=== PATIENT | female | born 1930 | race Caucasian/White ===

== ENCOUNTER 2018-08-29 12:23 | Inpatient (IN) ==
[2018-08-29] MEDS ORDERED: Adenosine Inj 6 MG/2 ML Syringe IV.PUSH ONE ×2 (12:33→12:40)
[2018-08-29] MEDS ORDERED: dilTIAZem Inj 125 MG in Sodium Chlor 0.9% Inj 100 ML IV.CONT PRN (12:40)
--- NOTE | 2018-08-29 12:47 | ED ---
HPI General Chief complaint: Arrhythmia / Palpitations Stated complaint: Medical Time Seen by Provider: 08/29/18 12:40 History of Present Illness HPI narrative: Patient is an 88-year-old female presents emergency department for evaluation of a fast heart rate. Patient states he went to her primary care physicians today and was told that she had a fast heart rate and was told to come immediately to the emergency department. Patient states she is on Coumadin and has been on Coumadin since she was admitted to the hospital for a hip fracture. She is also states she is on thyroid medicine. Patient when asked does not states that she does not have a history of atrial fibrillation. She has seen a kitchen manager sometime in the distant past but was discharged from the practice because her doctor said she did not need to go back anymore. No chest pain no shortness of breath no abdominal pain really no complaints of any kind. Related Data Allergies Allergy/AdvReac Type Severity Reaction Status Date / Time aspirin Allergy Unknown Bleeding Unverified 08/29/18 12:33 Review of Systems ROS: all other systems reviewed are negative [facility] Medical History Medical History A-fib (Acute) Social History Social History Substance History: No History of Abuse Smoking Status: Former smoker How Often Do You Have a Drink Containing Alcohol: Never Recent Travel in [facility] [place] within the Last 8 Weeks: No Immunization History Tetanus Immunization: <5 Years Exam Narrative Exam Narrative: GENERAL: Well-developed well-nourished, no obvious distress, quite pleasant per SKIN: Focused skin assessment warm/dry. HEAD: Atraumatic. Normocephalic. EYES: Pupils equal and round. No scleral icterus. No injection or drainage. ENT: No nasal bleeding or discharge. Mucous membranes pink and moist. NECK: Trachea midline. No JVD. CARDIOVASCULAR: Regular rhythm very tachycardic. 2+ bilateral equal pulses in all 4 extremities. No murmur appreciated. No murmurs gallops or rubs. RESPIRATORY: No accessory muscle use. Clear to auscultation. Breath sounds equal bilaterally. GASTROINTESTINAL: Abdomen soft, non-tender, nondistended. Hepatic and splenic margins not palpable. MUSCULOSKELETAL: No obvious deformities. No clubbing. No cyanosis. No edema. NEUROLOGICAL: Awake and alert. No obvious cranial nerve deficits. Motor grossly within normal limits. Normal speech. PSYCHIATRIC: Appropriate mood and affect; insight and judgment normal. Course Initial Documented Vital Signs Temperature 97.9 F 08/29/18 12:35 Pulse Rate 179 H 08/29/18 12:35 Respiratory Rate 24 08/29/18 12:35 Blood Pressure 110/92 H 08/29/18 12:35 Pulse Oximetry 100 08/29/18 12:35 Last Documented Vital Signs Temperature 97.9 F 08/29/18 12:35 Pulse Rate 109 H 08/29/18 12:49 Respiratory Rate 22 08/29/18 12:39 Blood Pressure 99/65 L 08/29/18 12:39 Pulse Oximetry 96 08/29/18 12:50 Medical Decision Making MDM Narrative Medical decision making narrative: Patient room to the emergency department, EKG shows SVT at 180 beats a minute, there are sometimes with the patient appears irregular on the monitor but it very difficult to determine the underlying rhythm. She was given adenosine 6 mg and a rhythm strip performed during the chemical cardioversion shows no P waves and consistent with atrial fibrillation RVR. The patient was given 15 mg of Cardizem at a 0.25 mg/kg bolus dose and this controlled her heart rate between 110-130. She will be started on a drip. Basic cardiac labs are pending and patient will probably be admitted to the hospital for further workup of (presumed) new onset atrial fibrillation RVR. Patient INR is 4, I think that she probably has a history of atrial fibrillation given this information however she does not call it. Thyroid studies unremarkable. Her rate is better controlled after bolus Cardizem in the 110, she is started on a Cardizem drip for further rate control. Discussed with Dr. Jacinto for admission. She remains complaint free. Medical Screen Exam Complete: Yes Emergency Medical Condition: Yes Lab Data Result diagrams: 08/29/18 12:47 08/29/18 12:47 Lab Results 08/29/18 08/29/18 08/29/18 Range/Units 12:47 12:47 12:47 WBC 11.5 H (4.0-11.0) th/mm3 RBC 4.14 (4.00-5.30) mil/mm3 Hgb 9.2 L (11.6-15.3) gm/dL Hct 30.0 L (35.0-46.0) % MCV 72.3 L (80.0-100.0) fL MCH 22.3 L (27.0-34.0) pg MCHC 30.8 L (32.0-36.0) % RDW 17.4 H (11.6-17.2) % Plt Count 253 (150-450) th/mm3 MPV 10.1 (7.0-11.0) fL Neut % (Auto) 79.8 H (16.0-70.0) % Lymph % (Auto) 9.3 (9.0-44.0) % Barron % (Auto) 9.3 H (0.0-8.0) % Eos % (Auto) 0.8 (0.0-4.0) % Baso % (Auto) 0.8 (0.0-2.0) % Neut # (Auto) 9.2 H (1.8-7.7) th/mm3 Lymph # (Auto) 1.1 (1.0-4.8) th/mm3 Barron # (Auto) 1.1 H (0.0-0.9) th/mm3 Eos # (Auto) 0.1 (0.0-0.4) th/mm3 Baso # (Auto) 0.1 (0.0-0.2) th/mm3 WBC Differential . Differential Comment Auto diff final PT 41.4 H (9.8-11.6) sec INR 4.1 Ratio APTT 46.7 H (23.4-31.7) sec Sodium 143 (136-145) meq/L Potassium 3.7 (3.5-5.1) meq/L Chloride 109 H (98-107) meq/L Carbon Dioxide 24.2 (21.0-32.0) meq/L Anion Gap 10 (5-15) meq/L BUN 16 (7-18) mg/dL Creatinine 1.17 H (0.50-1.00) mg/dL Estimated GFR 44 L (>89) mL/min Random Glucose 113 H (74-106) mg/dL Calcium 9.1 (8.5-10.1) mg/dL Total Bilirubin 0.6 (0.2-1.0) mg/dL AST 16 (15-37) U/L ALT 17 (10-53) U/L Alkaline Phosphatase 63 (45-117) U/L Troponin I Less than 0.02 L (0.02-0.05) ng/mL Total Protein 7.1 (6.4-8.2) g/dL Albumin 3.6 (3.4-5.0) g/dL TSH (0.358-3.740) uIU/mL Free T4 (0.76-1.46) ng/dL Free T3 (2.18-3.98) pg/mL 08/29/18 Range/Units 12:47 WBC (4.0-11.0) th/mm3 RBC (4.00-5.30) mil/mm3 Hgb (11.6-15.3) gm/dL Hct (35.0-46.0) % MCV (80.0-100.0) fL MCH (27.0-34.0) pg MCHC (32.0-36.0) % RDW (11.6-17.2) % Plt Count (150-450) th/mm3 MPV (7.0-11.0) fL Neut % (Auto) (16.0-70.0) % Lymph % (Auto) (9.0-44.0) % Barron % (Auto) (0.0-8.0) % Eos % (Auto) (0.0-4.0) % Baso % (Auto) (0.0-2.0) % Neut # (Auto) (1.8-7.7) th/mm3 Lymph # (Auto) (1.0-4.8) th/mm3 Barron # (Auto) (0.0-0.9) th/mm3 Eos # (Auto) (0.0-0.4) th/mm3 Baso # (Auto) (0.0-0.2) th/mm3 WBC Differential Differential Comment PT (9.8-11.6) sec INR Ratio APTT (23.4-31.7) sec Sodium (136-145) meq/L Potassium (3.5-5.1) meq/L Chloride (98-107) meq/L Carbon Dioxide (21.0-32.0) meq/L Anion Gap (5-15) meq/L BUN (7-18) mg/dL Creatinine (0.50-1.00) mg/dL Estimated GFR (>89) mL/min Random Glucose (74-106) mg/dL Calcium (8.5-10.1) mg/dL Total Bilirubin (0.2-1.0) mg/dL AST (15-37) U/L ALT (10-53) U/L Alkaline Phosphatase (45-117) U/L Troponin I (0.02-0.05) ng/mL Total Protein (6.4-8.2) g/dL Albumin (3.4-5.0) g/dL TSH 2.640 (0.358-3.740) uIU/mL Free T4 1.33 (0.76-1.46) ng/dL Free T3 1.69 L (2.18-3.98) pg/mL Imaging Data Radiologist's impression: Chest X-Ray 08/29/18 12:40 CONCLUSION: Cardiomegaly without evidence of acute cardiopulmonary process. Discharge Plan Discharge Order Discharge Orders: ED Use Only Admit Order (Routine); Ordered 08/29/18 Ordered By: Emmanuel Miller Physicians Team ED Provider: Emmanuel Miller Primary Care Provider: Clair Oliver Discharge Interventions Interventions: Vital Signs Last Done: 08/29/18 12:39 Status ED Status: Admitted Patient
[2018-08-29 13:07] LABS: Baso # (Auto) 0.1 th/mm3 (0.0-0.2); Baso % (Auto) 0.8 % (0.0-2.0); Eos # (Auto) 0.1 th/mm3 (0.0-0.4); Eos % (Auto) 0.8 % (0.0-4.0); Hemoglobin 9.2 gm/dL (11.6-15.3); Lymph # (Auto) 1.1 th/mm3 (1.0-4.8); Lymph % (Auto) 9.3 % (9.0-44.0); Mean Corpuscular Hemoglobin 22.3 pg (27.0-34.0); Mean Corpuscular Volume 72.3 fL (80.0-100.0); Mean Platelet Volume 10.1 fL (7.0-11.0); Mono # (Auto) 1.1 th/mm3 (0.0-0.9); Mono % (Auto) 9.3 % (0.0-8.0); Neut # (Auto) 9.2 th/mm3 (1.8-7.7); Neut % (Auto) 79.8 % (16.0-70.0); Platelet Count 253 th/mm3 (150-450); Red Blood Count 4.14 mil/mm3 (4.00-5.30); Red Cell Distribution Width 17.4 % (11.6-17.2); White Blood Count 11.5 th/mm3 (4.0-11.0)
[2018-08-29 13:11] LABS: Mean Corpuscular HGB Conc 30.8 % (32.0-36.0)
[2018-08-29 13:19] LABS: Activated Partial Thrombo Time 46.7 sec (23.4-31.7); INR 4.1 Ratio; Prothrombin Time 41.4 sec (9.8-11.6)
--- NOTE | 2018-08-29 13:26 | XR ---
EXAM DATE: 08/29/2018 1:05 PM EST AGE/SEX: 88 years / Female INDICATIONS: Chest pain. CLINICAL DATA: This is the patient's initial encounter. Patient reports that signs and symptoms have been present for 1 day and indicates a pain score of 6/10. MEDICAL/SURGICAL HISTORY: . A-fib None. COMPARISON: No prior exams available for comparison. FINDINGS: Heart is mildly enlarged. Lungs are well-expanded and free of acute airspace disease or significant congestion. Osseous structures are intact. CONCLUSION: Cardiomegaly without evidence of acute cardiopulmonary process. Electronically signed by: Jm Elias MD Board Certified Radiologist 08/29/2018 1:24 PM EST
[2018-08-29 13:27] LABS: Albumin 3.6 g/dL (3.4-5.0); Anion Gap 10 meq/L (5-15); Aspartate Aminotransferase 16 U/L (15-37); Blood Urea Nitrogen 16 mg/dL (7-18); Calcium 9.1 mg/dL (8.5-10.1); Carbon Dioxide 24.2 meq/L (21.0-32.0); Chloride 109 meq/L (98-107); Glomerular Filtration Rate 44 mL/min (>89); Glucose,Random 113 mg/dL (74-106); Potassium 3.7 meq/L (3.5-5.1); Sodium 143 meq/L (136-145)
[2018-08-29 13:29] LABS: Alanine Aminotransferase 17 U/L (10-53)
[2018-08-29 13:32] LABS: Alkaline Phosphatase 63 U/L (45-117); Total Protein 7.1 g/dL (6.4-8.2)
[2018-08-29 13:36] LABS: Free T4 (Free Thyroxine) 1.33 ng/dL (0.76-1.46); Thyroid Stimulating Hormone 2.64 uIU/mL (0.358-3.740); Triiodothyronine (T3) Free 1.69 pg/mL (2.18-3.98)
[2018-08-29] MEDS ORDERED: Bisacodyl 10 MG Supp RECTAL PRN (14:00)
--- NOTE | 2018-08-29 16:24 | P.HPIM ---
History of Present Illness Primary Care Physician: Clair Oliver MD Chief Complaint: My doctor told me to come to the emergency room. History of Present Illness: 88-year-old white female with a history of hyperlipidemia, hypothyroidism was sent to the emergency room after she was seen at her primary care physician's office today and found to have a weak and fast heart rate. She states that she has been asymptomatic with no complaints of dizziness, chest pain, palpitations, diaphoresis, nor any shortness of breath. She states that she does not believe she has a history of any cardiac issues even though she is on digoxin and verapamil. She had one visit with a snow removing supervisor in the distant past but was discharged from his practice. She reports chronic lower extremity swelling which is not worse however has noted some increased dry skin. She denies symptoms of orthopnea, nor any PND. She states that she lives with her daughter and usually ambulates independently. She states that she had a previous right hip fracture that was repaired and was under the impression she is on Coumadin due to the hip fracture. Diagnosis (1) Atrial fibrillation with RVR: Inpatient Certification Inpatient Certification: I certify that the inpatient services were ordered in accordance with Medicare regulations governing the order. This includes certification that hospital inpatient services are reasonable and necessary and in the case of services not specified as inpatient-only under 42 CFR 419.22(n), that they are appropriately provided as inpatient services in accordance to with the 2-midnight benchmark under 43 CFR 412.3(e) Estimated Total Length of Stay (Days): 3 Plans for Post Hospital Care: Home Review of Systems Constitutional: Reports as per HPI, Denies chills, Denies fatigue, Denies fever( s), Denies frequent falls and Denies headache(s) Eyes: Denies blurry vision, Denies change in vision and Denies eye pain Ears, Nose, Mouth, and Throat: Denies abnormal hearing, Denies headache(s), Denies mouth pain, Denies nasal congestion, Denies neck pain and Denies sore throat Cardiovascular: Denies chest pain, Denies pedal edema, Reports leg edema, Denies palpitations, Denies dyspnea, Denies orthopnea and Denies paroxysmal nocturnal dyspnea Respiratory: Denies cough, Denies dyspnea and Denies wheezing Gastrointestinal: Denies abdominal pain, Denies constipation, Denies loose stools, Denies nausea and Denies vomiting Musculoskeletal: Denies back pain, Denies myalgias, Denies arthralgias, Denies neck pain and Denies numbness Skin/Breast: Denies new lesions and Denies rash Neurologic: Denies abnormal hearing, Denies headache(s), Denies focal weakness, Denies memory loss and Denies numbness Psychiatric: Denies anxiety, Denies depression and Denies memory loss Endocrine: Denies cold intolerance, Denies heat intolerance and Denies palpitations Hematologic/Lymphatic: Denies easy bleeding and Denies easy bruising [facility] Medical History Medical History Hyperlipemia (Chronic) Hypothyroid (Chronic) Osteoporosis (Chronic) Surgical History Surgical History History of repair of right hip joint (Chronic) Family History Family History Mother Diabetes mellitus Social History Social History Substance History: No History of Abuse Smoking Status: Former smoker How Often Do You Have a Drink Containing Alcohol: Never Recent Travel in [facility] within the Last 8 Weeks: No Immunization History Tetanus Immunization: <5 Years Medications and Allergies Allergies Allergy/AdvReac Type Severity Reaction Status Date / Time aspirin Allergy Unknown Bleeding Unverified 08/29/18 12:33 Home Medications Medication Instructions Recorded Confirmed Type alendronate [Fosamax] 70 mg PO QWEEK 08/29/18 08/29/18 History bumetanide 1 mg PO DAILY 08/29/18 08/29/18 History digoxin [Lanoxin] 0.125 mg PO DAILY 08/29/18 08/29/18 History levothyroxine 100 mcg PO DAILY 08/29/18 08/29/18 History potassium chloride 10 meq PO DAILY 08/29/18 08/29/18 History pravastatin 40 mg PO DAILY 08/29/18 08/29/18 History verapamil 120 mg PO HS 08/29/18 08/29/18 History warfarin [Jantoven] 2.5 mg PO 3XW 08/29/18 08/29/18 History warfarin [Jantoven] 5 mg PO 4XW 08/29/18 08/29/18 History Active Medications: Active Medications Acetaminophen (Tylenol) 650 mg PO Q4H PRN PRN Reason: Temp > 100.4 Al Hydroxide/Mg Hydroxide (Milk Of Magnesia Liq) 30 ml PO Q12H PRN PRN Reason: Mild Constipation Bisacodyl (Dulcolax Supp) 10 mg RECTAL DAILY PRN PRN Reason: SEVERE CONSITIPATION Diltiazem HCl 125 mg/ Sodium (Chloride) 125 mls @ 5 mls/hr IV.CONT TITRATE PRN ; Protocol PRN Reason: Per Protocol Last Titration: 08/29/18 15:09 Dose: 10 mg/hr, 10 mls/hr Lactulose (Lactulose Liq) 30 ml PO DAILY PRN PRN Reason: SEVERE CONSITIPATION Ondansetron HCl (Zofran Inj) 4 mg IV.PUSH Q6H PRN PRN Reason: NAUSEA OR VOMITING Sennosides (Senokot) 17.2 mg PO Q12H PRN PRN Reason: Moderate Constipation Sodium Chloride (Ns Flush) 2 ml IV.FLUSH UNSCH PRN PRN Reason: FLUSH AFTER USING IV ACCESS Sodium Chloride (Ns Flush) 2 ml IV.FLUSH BID VOLODYMYR Sodium Chloride (Ns Flush) 2 ml IV.FLUSH PRN PRN PRN Reason: FLUSH AFTER USING IV ACCESS Physical Exam Vital signs: Last Vital Signs Temp 97.9 F 08/29/18 12:35 Pulse 90 08/29/18 16:08 Resp 16 08/29/18 15:10 BP 112/69 08/29/18 16:08 Pulse Ox 99 08/29/18 15:10 Intake & Output 08/27/18 08/28/18 08/29/18 08/30/18 06:59 06:59 06:59 06:59 Weight 2.325 kg Narrative: GENERAL: Well-nourished well-developed elderly female lying in bed in no acute distress SKIN: Dry flaking skin bilateral lower extremities HEAD: Atraumatic. Normocephalic. EYES: Pupils equal and round. No scleral icterus. No injection or drainage. ENT: No nasal bleeding or discharge. Mucous membranes pink and moist. NECK: Trachea midline. No JVD. CARDIOVASCULAR: Irregular rhythm tachycardic rate RESPIRATORY: No accessory muscle use. Few expiratory wheeze GASTROINTESTINAL: Abdomen soft, non-tender, small ventral hernia reducible with normal active bowel sounds MUSCULOSKELETAL: Extremities without clubbing, cyanosis, 1-2+ edema NEUROLOGICAL: Awake and alert to person place time and situation. No obvious cranial nerve deficits. Motor grossly within normal limits. Five out of 5 muscle strength in the arms and legs. Normal speech. PSYCHIATRIC: Appropriate mood and affect; insight and judgment normal. Results Labs CBC & Chem 7: 08/29/18 12:47 08/29/18 12:47 Imaging Impressions Chest X-Ray 08/29/18 12:40 CONCLUSION: Cardiomegaly without evidence of acute cardiopulmonary process. ECG Attestation: I personally reviewed and interpreted this ECG as follows: Prior ECG tracings: not available for review Interpretation: Atrial fibrillation with rapid ventricular rate 194 Caprini VTE Risk Assessment Caprini Risk Assessment Model: Point Value = 1 Point Value = 2 Point Value = 3 Point Value = 5 Age 41-60 Minor surgery BMI > 25 kg/m2 Swollen legs Varicose veins or History of unexplained or recurrent spontaneous Oral contraceptives or hormone replacement Sepsis (< 1 month) Serious lung disease, including pneumonia (< 1 month) Abnormal pulmonary function Acute myocardial infarction Congestive heart failure (< 1 month) History of inflammatory bowel disease Medical patient at bed rest Age 61-74 Arthroscopic surgery Major open surgery (> 45 min) Laparoscopic surgery (> 45 min) Malignancy Confined to bed (> 72 hours) Immobilizing plaster cast Central venous access Age >= 75 History of VTE Family history of VTE Factor V Leiden Prothrombin [id number] Lupus anticoagulant Anticardiolipin antibodies Elevated serum homocysteine Heparin-induced thrombocytopenia Other congenital or acquired thrombophilia Stroke (< 1 month) Elective arthroplasty Hip, pelvis, or leg fracture Acute spinal cord injury (< 1 month) Prophylaxis Regimen: Total Risk Factor Score Risk Level Prophylaxis Regimen 0-1 Low Early ambulation 2 Moderate Order ONE of the following: *Sequential Compression Device (SCD) *Heparin 5000 units SQ BID 3-4 Higher Order ONE of the following medications: *Heparin 5000 units SQ TID *Enoxaparin/Lovenox 40 mg SQ daily (WT < 150 kg, CrCl > 30 mL/min) *Enoxaparin/Lovenox 30 mg SQ daily (WT < 150 kg, CrCl > 10-29 mL/min) *Enoxaparin/Lovenox 30 mg SQ BID (WT < 150 kg, CrCl > 30 mL/min) AND/OR *Sequential Compression Device (SCD) 5 or more Highest Order ONE of the following medications: *Heparin 5000 units SQ TID (Preferred with Epidurals) *Enoxaparin/Lovenox 40 mg SQ daily (WT < 150 kg, CrCl > 30 mL/min) *Enoxaparin/Lovenox 30 mg SQ daily (WT < 150 kg, CrCl > 10-29 mL/min) *Enoxaparin/Lovenox 30 mg SQ BID (WT < 150 kg, CrCl > 30 mL/min) AND *Sequential Compression Device (SCD) Assessment and Plan (1) Atrial fibrillation with RVR: Code(s): I48.91 - Unspecified atrial fibrillation Status: Acute Plan 88-year-old white female was sent from her primary care physician's office due to findings of week and fast pulse Atrial fibrillation with rapid ventricular ratestatus post adenosine and Cardizem IV push with persistent continued uncontrolled rate in which Cardizem drip had to be initiated. Patient denies a cardiac history or arrhythmias however patient has been taking digoxin, verapamil and warfarin. Due to INR in the supratherapeutic range will hold warfarin. Check 2D echo and consult cardiology for further evaluation and recommendations. Check TSH History of hypothyroidismresume home levothyroxine. Due to A. fib with RVR will check TSH level History hyperlipidemiaresume statin. Bilateral lower extremity chronic edemaelevate consideration for RACHELLE hose and continue home Bumex. Lac-hydrin lotion for bilateral dry skin Possible acute kidney injury with no comparison for any recent GFR, last GFR available is in 2008 at 68. -We will monitor closely renal function on diuretic Microcytic anemialikely may be chronic, check iron panel. DVT prophylaxishold warfarin due to elevated INR.
[2018-08-29] MEDS: Acetaminophen 325 MG Tablet PO PRN (23:09)
[2018-08-30] MEDS: Lactic Acid (Ammonium Lactate) 12% Lotion 225 GM Bottle TOPICAL SCH ×3 (02:05→20:15)
[2018-08-30] MEDS: Levothyroxine 100 MCG Tablet PO SCH (06:31)
[2018-08-30] MEDS: Acetaminophen 325 MG Tablet PO PRN (06:31)
[2018-08-30 07:40] LABS: Baso # (Auto) 0.1 th/mm3 (0.0-0.2); Baso % (Auto) 0.9 % (0.0-2.0); Eos # (Auto) 0.2 th/mm3 (0.0-0.4); Eos % (Auto) 2.1 % (0.0-4.0); Hematocrit 25.2 % (35.0-46.0); Lymph # (Auto) 1.2 th/mm3 (1.0-4.8); Lymph % (Auto) 14.7 % (9.0-44.0); Mean Corpuscular HGB Conc 31.8 % (32.0-36.0); Mean Corpuscular Volume 72.2 fL (80.0-100.0); Mean Platelet Volume 9.5 fL (7.0-11.0); Mono # (Auto) 1.1 th/mm3 (0.0-0.9); Mono % (Auto) 12.9 % (0.0-8.0); Neut # (Auto) 5.8 th/mm3 (1.8-7.7); Neut % (Auto) 69.4 % (16.0-70.0); Platelet Count 191 th/mm3 (150-450); Red Blood Count 3.49 mil/mm3 (4.00-5.30); Red Cell Distribution Width 17.1 % (11.6-17.2); White Blood Count 8.3 th/mm3 (4.0-11.0)
[2018-08-30 07:42] LABS: INR 4.5 Ratio; Prothrombin Time 45.3 sec (9.8-11.6)
[2018-08-30 08:02] LABS: Calcium 8.5 mg/dL (8.5-10.1); Carbon Dioxide 23.3 meq/L (21.0-32.0)
[2018-08-30 08:03] LABS: % Iron Saturation 3.1 % (20-50)
[2018-08-30 08:12] LABS: Thyroid Stimulating Hormone 1.84 uIU/mL (0.358-3.740)
--- NOTE | 2018-08-30 10:49 | P.PNIM ---
Subjective Interval history: Follow-up for atrial fibrillation abdominal discomfort Telemetry showed regular rhythm. Patient has abdominal discomfort, no pain but constipated, has not moved her bowels since 4 days ago, no melena or hematochezia. No previous GI problems. No nausea or vomiting, tolerating diet. No bleeding. No palpitations or chest pain. Not short of breath. Blood pressure in the low 90s on Cardizem drip at 5 mg/h. Physical Exam Vital signs: Last Vital Signs Temp 98.1 F 08/30/18 00:00 Pulse 96 H 08/30/18 06:00 Resp 16 08/30/18 04:00 BP 108/75 08/30/18 04:00 Pulse Ox 92 L 08/30/18 04:00 Intake & Output 08/28/18 08/29/18 08/30/18 08/31/18 06:59 06:59 06:59 06:59 Intake Total 640 / 640 Output Total 325 / 325 Balance 315 / 315 Weight 57.3 kg Narrative: GENERAL: Well-nourished well-developed elderly female lying in bed in no acute distress CARDIOVASCULAR: Regular rhythm, heart rate in the 80s, no murmur. RESPIRATORY: No accessory muscle use. Few expiratory wheeze GASTROINTESTINAL: Abdomen soft, mildly tender, mildly distended, small ventral hernia reducible with normal active bowel sounds MUSCULOSKELETAL: Extremities without clubbing, cyanosis, 1-2+ edema NEUROLOGICAL: Awake and alert to person place time and situation. No obvious cranial nerve deficits. Motor grossly within normal limits. Five out of 5 muscle strength in the arms and legs. Normal speech. Results Labs CBC & Chem 7: 08/30/18 07:12 08/30/18 07:13 Imaging Imaging: Impressions Chest X-Ray 08/29/18 12:40 CONCLUSION: Cardiomegaly without evidence of acute cardiopulmonary process. Assessment and Plan (1) Atrial fibrillation with RVR: Code(s): I48.91 - Unspecified atrial fibrillation Status: Acute Plan 88-year-old white female was sent from her primary care physician's office due to findings of week and fast pulse, upon admission, the patient was found to be in atrial fibrillation with rapid ventricular rate. Atrial fibrillation with rapid ventricular ratestatus post adenosine and Cardizem IV push, currently on Cardizem drip at 5 mg/h. Patient denies a cardiac history or arrhythmias however patient has been taking digoxin, verapamil and warfarin. She cannot remember the name of her direct marketing analyst. Due to INR in the supratherapeutic range will hold warfarin, INR at 4.5. TSH is within normal limits, echocardiogram and cardiology consult pending. Possible switch to novel anticoagulant. Will switch Cardizem to oral at 30 mg every 6 hours. Check digoxin level. Will check EKG. Supratherapeutic INR, coagulation abnormality-INR elevated at 4.5, hold warfarin , possible switch to novel anticoagulant if okay with cardiology, check INR tomorrow. Severe constipation-has not had a bowel movement for 4 days, check abdominal x- ray, will give lactulose now and lactulose as needed. Patient refuses suppository. History of hypothyroidismresume home levothyroxine. TSH within normal limits. History hyperlipidemiaresume statin. Bilateral lower extremity chronic edemaelevate consideration for RACHELLE blue, on Bumex but on hold. Lac-hydrin lotion for bilateral dry skin Possible acute kidney injury with no comparison for any recent GFR, last GFR available is in 2008 at 68. We will monitor closely renal function on diuretic, creatinine stable, recheck BMP tomorrow, patient does not have a community development planner. Microcytic anemialikely may be chronic, check iron panel, worsening, dropped from 9.2-8.0. DVT prophylaxishold warfarin due to elevated INR.
[2018-08-30] MEDS: dilTIAZem 30 MG Tablet PO SCH ×3 (12:45→20:09)
[2018-08-30] MEDS ORDERED: Digoxin 125 MCG Tablet PO ONE (13:00)
--- NOTE | 2018-08-30 13:24 | ECHRPT ---
Indication: ATRIAL FIB CONCLUSIONS The left ventricular systolic function is normal with an estimated ejection fraction in the range of 60-65%. Normal left ventricular size. Wall thickness is normal. No regional wall motion abnormalities are present. The left atrial size is mildly dilated. Moderate thickening of the mitral valve leaflets. Trace mitral valve regurgitation. Aortic valve sclerosis is present. Trace aortic valve regurgitation. There is mild to moderate tricuspid valve regurgitation. The estimated pulmonary arterial pressure is 39 mmHg. BP: / HR: Rhythm: Atrial fibrillation Technical Quality:Fair FINDINGS LEFT VENTRICLE The left ventricular systolic function is normal with an estimated ejection fraction in the range of 60-65%. Normal left ventricular size. Wall thickness is normal. No regional wall motion abnormalities are present. RIGHT VENTRICLE Normal right ventricular size and systolic function. LEFT ATRIUM The left atrial size is mildly dilated. RIGHT ATRIUM The right atrial size is normal. ATRIAL SEPTUM Normal atrial septal thickness without atrial level shunting by limited color doppler interrogation. AORTA The aortic root and proximal ascending aorta are normal in size on limited imaging. MITRAL VALVE Moderate thickening of the mitral valve leaflets. Trace mitral valve regurgitation. AORTIC VALVE Trileaflet aortic valve. Aortic valve sclerosis is present. Trace aortic valve regurgitation. TRICUSPID VALVE Structurally normal tricuspid valve. There is mild to moderate tricuspid valve regurgitation. The estimated pulmonary arterial pressure is __ mmHg. PULMONARY VALVE The pulmonary valve is not well visualized. VESSELS The inferior vena cava is normal in size. PERICARDIUM No pericardial effusion. Sandeep Smith MD, FACC (Electronically Signed) Final Date:30 August 2018 13:23
--- NOTE | 2018-08-30 16:18 | ECG ---
Date Performed: 08/29/2018 Time Performed: 12:33:38 PTAGE: 88 years EKG: ATRIAL FIBRILLATION WITH RAPID VENTRICULAR RESPONSE POSSIBLE RIGHT VENTRICULAR CONDUCTION D ELAY NONSPECIFIC ST & T-WAVE ABNORMALITY ABNORMAL ECG PREVIOUS TRACING : 06/13/2008 14.04 Compared to previous tracing, atrial fibrillation has repla qiana Sinus rhythm , heart rate has increased. DOCTOR: Markell Guillen Interpretating Date/Time 08/30/2018 16:17:04
--- NOTE | 2018-08-30 18:01 | MB ---
cc: Markell Guillen MD DATE: 08/30/2018 REASON FOR CONSULTATION: Atrial fibrillation. HISTORY OF PRESENT ILLNESS: The patient is an 88-year-old white female with a history of hypertension, irritable bowel syndrome, hyperlipidemia, paroxysmal atrial fibrillation dating back to 2006, who was sent to the hospital by her primary care doctor as she was felt to be in atrial fibrillation with a rapid ventricular response. The patient denies any palpitations, dizziness, syncope, or near-syncope, chest pain, shortness of breath, paroxysmal nocturnal dyspnea, pedal edema. She reports being on warfarin for at least the last 10 years. PAST MEDICAL HISTORY: 1. Hypertension. 2. Irritable bowel syndrome. 3. Hyperlipidemia. 4. Paroxysmal atrial fibrillation, diagnosed 08/15/2007. PAST SURGICAL HISTORY: 1. Cholecystectomy. 2. Appendectomy. 3. Bladder tumor resection. 4. Right hip nailing. CARDIAC MEDICATIONS AT HOME: 1. Warfarin 2.5 mg 3 days out of the week, 5 mg the four other days. 2. Verapamil 120 mg at bedtime. 3. Bumex 1 mg daily. 4. Potassium chloride 10 mEq daily. 5. Pravastatin 40 mg daily. 6. Digoxin 0.125 mg daily. ALLERGIES: ASPIRIN. FAMILY HISTORY: Noncontributory. SOCIAL HISTORY: The patient denies any history of alcohol or tobacco abuse. REVIEW OF SYSTEMS: As in the history of present illness, otherwise negative or noncontributory. She also denies headache, visual changes, unilateral weakness or numbness, abdominal pain, melena, dyspepsia, bright red blood per rectum. PHYSICAL EXAMINATION: VITAL SIGNS: Her blood pressure is 108/70 with a pulse of 93, respirations 18. GENERAL: She is a well-developed, well-nourished white female, in no acute distress. NECK: Jugular venous pressure is normal. Carotid pulses are 2+ bilaterally and without bruits. CHEST: Reveals unlabored respiratory effort with clear lungs etienne. CARDIAC: She has an irregularly irregular rhythm without S3 or murmur. ABDOMEN: She has a soft, nontender abdomen. Bowel sounds are present. There is no definite hepatosplenomegaly. EXTREMITIES: Reveals no clubbing, cyanosis or edema. LABORATORY DATA: EKG shows atrial fibrillation, cannot rule out atrial flutter, with a rapid ventricular response, right ventricular conduction delay, nonspecific intraventricular conduction delay, anterior ST abnormality, consider ischemia. LABORATORY DATA: Includes INR 4.5, potassium 4.0, BUN 14, creatinine 1.01. Troponin less than 0.02. WBC 8.3, hemoglobin 8.0, platelets 191. Chest x-ray shows no acute disease. ASSESSMENT AND PLAN: Atrial fibrillation with a rapid ventricular response in this 88-year-old white female with a history of paroxysmal atrial fibrillation dating back to 2006, history of hypertension, hyperlipidemia, irritable bowel syndrome. At this time, she remains in atrial fibrillation now with controlled heart rates on oral Cardizem. There is no evidence for acute coronary syndrome or congestive heart failure. Her echocardiogram today is unremarkable, showing an ejection fraction of 60-65%. The chronicity of her episode of atrial fibrillation is not entirely clear. She is completely asymptomatic. RECOMMENDATIONS: 1. Agree with holding warfarin given her supra-therapeutic prothrombin time. 2. If she is stable tomorrow, she can be discharged home from a cardiac standpoint on her same home cardiac medications plus oral Cardizem, to replace her verapamil. Markell Guillen MD [facility]/ll , 04:07 PM , 04:16 PM MTDDaniel
--- NOTE | 2018-08-30 19:55 | XR ---
EXAM DATE: 08/30/2018 7:52 PM EST AGE/SEX: 88 years / Female INDICATIONS: Distention. CLINICAL DATA: This is the patient's initial encounter. Patient reports that signs and symptoms have been present for 2 days and indicates a pain score of 0/10. MEDICAL/SURGICAL HISTORY: . A-Fib. None. COMPARISON: No prior exams available for comparison. FINDINGS: Air is noted throughout the colon which does not appear significantly dilated. No significantly dila jim loops of small bowel. No significant pneumatosis or free air. No abnormal calcifications. S-shape d scoliosis of the lumbar spine with associated degenerative spondylosis. Right femoral fixation hard sanabria in place. CONCLUSION: 1. Nonobstructive bowel gas pattern. Electronically signed by: Tod Chino MD Board Certified Radiologist 08/30/2018 7:54 PM JAZMÍN T
[2018-08-31] MEDS: Levothyroxine 100 MCG Tablet PO SCH (05:20)
[2018-08-31 08:12] LABS: Baso # (Auto) 0.1 th/mm3 (0.0-0.2); Baso % (Auto) 0.8 % (0.0-2.0); Eos # (Auto) 0.2 th/mm3 (0.0-0.4); Eos % (Auto) 1.4 % (0.0-4.0); Hematocrit 27.9 % (35.0-46.0); Hemoglobin 8.9 gm/dL (11.6-15.3); Lymph # (Auto) 1.2 th/mm3 (1.0-4.8); Lymph % (Auto) 10.2 % (9.0-44.0); Mean Corpuscular Hemoglobin 22.6 pg (27.0-34.0); Mean Corpuscular Volume 70.4 fL (80.0-100.0); Mean Platelet Volume 9.8 fL (7.0-11.0); Mono # (Auto) 1.2 th/mm3 (0.0-0.9); Mono % (Auto) 10.2 % (0.0-8.0); Neut # (Auto) 8.9 th/mm3 (1.8-7.7); Neut % (Auto) 77.4 % (16.0-70.0); Platelet Count 220 th/mm3 (150-450); Red Blood Count 3.96 mil/mm3 (4.00-5.30); Red Cell Distribution Width 17.1 % (11.6-17.2); White Blood Count 11.5 th/mm3 (4.0-11.0)
[2018-08-31 08:25] LABS: INR 3.1 Ratio; Prothrombin Time 31.6 sec (9.8-11.6)
[2018-08-31] MEDS: dilTIAZem 30 MG Tablet PO SCH (08:36)
[2018-08-31] MEDS: Lactic Acid (Ammonium Lactate) 12% Lotion 225 GM Bottle TOPICAL SCH ×2 (08:37→20:16)
[2018-08-31 08:44] LABS: Calcium 8.6 mg/dL (8.5-10.1); Carbon Dioxide 25.9 meq/L (21.0-32.0); Potassium 3.4 meq/L (3.5-5.1)
[2018-08-31 08:59] LABS: Digoxin 0.6 ng/mL (0.8-2.0)
--- NOTE | 2018-08-31 10:38 | P.DS ---
DS: Providers Date of admission: 08/29/18 14:04 Primary care physician: Clair Oliver MD Consults: 08/29/18 14:35 HUB Only Consult Order Routine Consulting Provider: Michael Rodriguez 08/30/18 11:15 Consult to Cardiology Routine Consulting Provider: Markell Guillen Does the patient have a Plier Worker who follows them?: Yes Preferred Plant Supervisor:: Blunger Loader Physician Reason for Consultation: afib, rvr. Patient cannot remember her machinist 2nd shift name. Notified:: Office Spoke with:: TIMA Date Notified:: 08/30/18 Time Notified:: 11:25 Ordering Provider: DIGNA Brief History from admission: 88-year-old white female with a history of hyperlipidemia, hypothyroidism was sent to the emergency room after she was seen at her primary care physician's office today and found to have a weak and fast heart rate. She states that she has been asymptomatic with no complaints of dizziness, chest pain, palpitations, diaphoresis, nor any shortness of breath. She states that she does not believe she has a history of any cardiac issues even though she is on digoxin and verapamil. She had one visit with a machinist 2nd shift in the distant past but was discharged from his practice. She reports chronic lower extremity swelling which is not worse however has noted some increased dry skin. She denies symptoms of orthopnea, nor any PND. She states that she lives with her daughter and usually ambulates independently. She states that she had a previous right hip fracture that was repaired and was under the impression she is on Coumadin due to the hip fracture. DS: Diagnosis Discharge Diagnosis (1) Atrial fibrillation with RVR: Status: Acute DS: Summary 88-year-old white female was sent from her primary care physician's office due to findings of week and fast pulse, upon admission, the patient was found to be in atrial fibrillation with rapid ventricular rate. Patient received adenosine and Cardizem push and was placed on Cardizem drip upon ED evaluation. Her verapamil was discontinued. INR was therapeutic hence Coumadin was held. TSH is within normal limits, cardio was done, ejection fraction is 60-65% with normal left ventricular size. Cardiology was consulted and agreed with starting patient on Cardizem and stop verapamil. Patient was cleared by cardiology for discharge. Patient was switched from Cardizem IV to oral and will be switched today to 24-hour long-acting Cardizem. Digoxin levels are also low, hence patient received an extra dose day prior to discharge. Repeat digoxin on the day of discharge was still low hence dose of digoxin was given. Creatinine is stable. INR is 3.1, patient was instructed to hold Coumadin today and restart tomorrow and follow-up with primary care physician next week. Patient's hospital stay was completed by severe constipation which improved with lactulose. Creatinine was also elevated on admission, improved by holding Bumex. Patient will be given a lab slip for BMP and INR check on Sunday. Time Spent with Patient Total time spent providing and/or coordinating discharge services: Greater than 30 minutes Exam Narrative Exam Narrative: Narrative: GENERAL: Well-nourished well-developed elderly female lying in bed in no acute distress CARDIOVASCULAR: Irregular rhythm, tachycardic borderline in the 90s. RESPIRATORY: No accessory muscle use. Few expiratory wheeze GASTROINTESTINAL: Abdomen soft, mildly tender, mildly distended, small ventral hernia reducible with normal active bowel sounds MUSCULOSKELETAL: Extremities without clubbing, cyanosis, 1+ edema NEUROLOGICAL: Awake and alert to person place time and situation. No obvious cranial nerve deficits. Motor grossly within normal limits. Five out of 5 muscle strength in the arms and legs. Normal speech. Results Labs on day of discharge: Labs from last 24 hours 08/31/18 08/31/18 08/31/18 07:37 07:37 07:37 WBC 11.5 H RBC 3.96 L Hgb 8.9 L Hct 27.9 L MCV 70.4 L MCH 22.6 L MCHC 32.0 RDW 17.1 Plt Count 220 MPV 9.8 Neut % (Auto) 77.4 H Lymph % (Auto) 10.2 Stone % (Auto) 10.2 H Eos % (Auto) 1.4 Baso % (Auto) 0.8 Neut # (Auto) 8.9 H Lymph # (Auto) 1.2 Stone # (Auto) 1.2 H Eos # (Auto) 0.2 Baso # (Auto) 0.1 WBC Differential . Differential Comment Auto diff final PT 31.6 H D INR 3.1 Sodium 142 Potassium 3.4 L Chloride 108 H Carbon Dioxide 25.9 Anion Gap 8 BUN 14 Creatinine 1.02 H Estimated GFR 51 L Random Glucose 88 Calcium 8.6 Iron TIBC Iron & TIBC % Saturation Digoxin 0.6 L 08/30/18 07:13 WBC RBC Hgb Hct MCV MCH MCHC RDW Plt Count MPV Neut % (Auto) Lymph % (Auto) Stone % (Auto) Eos % (Auto) Baso % (Auto) Neut # (Auto) Lymph # (Auto) Stone # (Auto) Eos # (Auto) Baso # (Auto) WBC Differential Differential Comment PT INR Sodium Potassium Chloride Carbon Dioxide Anion Gap BUN Creatinine Estimated GFR Random Glucose Calcium Iron Cancelled TIBC Cancelled Iron & TIBC Cancelled % Saturation Cancelled Digoxin 0.7 L Impressions ITS Impressions Chest X-Ray 08/29/18 12:40 CONCLUSION: Cardiomegaly without evidence of acute cardiopulmonary process. Abdomen X-Ray 08/30/18 00:00 CONCLUSION: 1. Nonobstructive bowel gas pattern. Discharge Plan Discharge Disposition Patient Disposition: Discharge Home Discharge Order Discharge Orders: Discharge Order (Routine); Ordered 08/31/18 Ordered By: Danielle Bolivar ED Use Only Admit Order (Routine); Ordered 08/29/18 Ordered By: Emmanuel Miller Discharge Details Anticipated Discharge Date: 08/31/18 Discharge Comment: d/c after receive CD Cardizem and digoxin; and if HR remains stable Physicians Team ED Provider: Emmanuel Miller Primary Care Provider: Clair Oliver Attending Provider: Danielle Bolivar Other Providers: Michael Rodriguez ; Markell Guillen Rxs /Orders / Referrals /Forms Prescriptions: New diltiazem HCl 240 mg Capsule,Extended Release 24hr 240 mg PO DAILY Qty: 30 RF: 0 sennosides [Senna Lax] 8.6 mg Tablet 17.2 mg PO Q12H PRN (Reason: Moderate Constipation) Qty: 60 RF: 0 Continue pravastatin 40 mg Tablet 40 mg PO DAILY RF: 0 alendronate [Fosamax] 70 mg Tablet 70 mg PO QWEEK RF: 0 potassium chloride 10 mEq Tablet Extended Release 10 meq PO DAILY RF: 0 levothyroxine 100 mcg Tablet 100 mcg PO DAILY RF: 0 warfarin [Jantoven] 5 mg Tablet 2.5 mg PO 3XW RF: 0 warfarin [Jantoven] 5 mg Tablet 5 mg PO 4XW RF: 0 bumetanide 1 mg Tablet 1 mg PO DAILY RF: 0 digoxin [Lanoxin] 125 mcg Tablet 0.125 mg PO DAILY RF: 0 Discontinued verapamil 120 mg Tablet Extended Release 120 mg PO HS RF: 0 Ambulatory Orders / Order Sets / DME: Basic Metabolic Panel (Routine) Location: Determined by Patient Ordered By: Danielle Bolivar Prothrombin Time INR (Routine) Timeframe: 2 Days Location: Determined by Patient Ordered By: Danielle Bolivar Referrals: Clair Oliver MD [Primary Care Provider] - 09/02/18 12:00 am (f/u with PCP in 1-3 days) Status ED Status: Left Department
[2018-08-31] MEDS ORDERED: Digoxin 125 MCG Tablet PO ONE (10:45)
[2018-08-31] MEDS: dilTIAZem CD 240 MG Capsule PO SCH (11:06)
--- NOTE | 2018-08-31 11:41 | ECG ---
Date Performed: 08/30/2018 Time Performed: 16:37:58 PTAGE: 88 years EKG: Atrial fibrillation rSr'(V1) - probable normal variant Extensive ST-T changes may be due to myocardial ischemia Abnormal ECG Compared to PREVIOUS TRACING the rate has slowed PREVIOUS TRACIN08/29/2018 12.33 DOCTOR: Hasmukh Parmar Interpretating Date/Time 08/31/2018 11:39:24
--- NOTE | 2018-08-31 11:54 | P.PNCA ---
Subjective Interval history: Feels "just fine". Denies palpitations, dizziness, dyspnea, CP. Slept very well. Medications and Allergies Active Medications: Active Medications Acetaminophen (Tylenol) 650 mg PO Q4H PRN PRN Reason: Temp > 100.4 Last Admin: 08/30/18 06:31 Dose: 650 mg Al Hydroxide/Mg Hydroxide (Milk Of Magnesia Liq) 30 ml PO Q12H PRN PRN Reason: Mild Constipation Bisacodyl (Dulcolax Supp) 10 mg RECTAL DAILY PRN PRN Reason: SEVERE CONSITIPATION Bumetanide (Bumex) 1 mg PO DAILY [facility] Last Admin: 08/31/18 08:36 Dose: 1 mg Diltiazem HCl (Cardizem Cd 24hr) 240 mg PO DAILY [facility] Last Admin: 08/31/18 11:06 Dose: 240 mg Lactic Acid (Lac-Hydrin 12% Lotion) 1 applicatio TOPICAL BID [facility] Stop: 09/05/18 20:59 Last Admin: 08/31/18 08:37 Dose: 1 applicatio Lactulose (Lactulose Liq) 30 ml PO DAILY PRN PRN Reason: SEVERE CONSITIPATION Lactulose (Lactulose Liq) 30 ml PO DAILY PRN PRN Reason: CONSTIPATION Levothyroxine Sodium (Synthroid) 100 mcg PO DAILY@0600 [facility] Last Admin: 08/31/18 05:20 Dose: 100 mcg Ondansetron HCl (Zofran Inj) 4 mg IV.PUSH Q6H PRN PRN Reason: NAUSEA OR VOMITING Potassium Chloride (Klor-Con 10) 10 meq PO DAILY [facility] Last Admin: 08/31/18 08:36 Dose: 10 meq Pravastatin Sodium (Pravachol) 40 mg PO DAILY [facility] Last Admin: 08/31/18 08:36 Dose: 40 mg Sennosides (Senokot) 17.2 mg PO Q12H PRN PRN Reason: Moderate Constipation Sodium Chloride (Ns Flush) 2 ml IV.FLUSH BID [facility] Last Admin: 08/31/18 08:37 Dose: 2 ml Sodium Chloride (Ns Flush) 2 ml IV.FLUSH PRN PRN PRN Reason: FLUSH AFTER USING IV ACCESS Allergies Allergy/AdvReac Type Severity Reaction Status Date / Time aspirin Allergy Unknown Bleeding Unverified 08/29/18 12:33 Home Medications Medication Instructions Recorded Confirmed Type alendronate [Fosamax] 70 mg PO QWEEK 08/29/18 08/29/18 History bumetanide 1 mg PO DAILY 08/29/18 08/29/18 History digoxin [Lanoxin] 0.125 mg PO DAILY 08/29/18 08/29/18 History levothyroxine 100 mcg PO DAILY 08/29/18 08/29/18 History potassium chloride 10 meq PO DAILY 08/29/18 08/29/18 History pravastatin 40 mg PO DAILY 08/29/18 08/29/18 History verapamil 120 mg PO HS 08/29/18 08/29/18 History warfarin [Jantoven] 2.5 mg PO 3XW 08/29/18 08/29/18 History warfarin [Jantoven] 5 mg PO 4XW 08/29/18 08/29/18 History Physical Exam Vital signs: Vital Signs 08/30/18 12:00 08/30/18 13:00 08/30/18 14:00 Temperature 98.2 F Pulse Rate 96 H 98 H 132 H Respiratory Rate 18 Blood Pressure 108/71 Pulse Oximetry 96 08/30/18 14:55 08/30/18 15:00 08/30/18 16:00 Temperature 98.4 F Pulse Rate 96 H 98 H Respiratory Rate 20 Blood Pressure 109/75 Pulse Oximetry 97 95 08/30/18 17:00 08/30/18 18:00 08/30/18 19:00 Temperature Pulse Rate 96 H 99 H 80 Respiratory Rate Blood Pressure Pulse Oximetry 08/30/18 20:00 08/30/18 21:00 08/30/18 21:01 Temperature 98.2 F Pulse Rate 88 96 H Respiratory Rate 20 Blood Pressure 111/69 Pulse Oximetry 95 97 08/30/18 22:00 08/30/18 23:00 08/31/18 00:00 Temperature 97.8 F Pulse Rate 90 87 92 H Respiratory Rate 20 Blood Pressure 105/67 Pulse Oximetry 96 08/31/18 01:00 08/31/18 02:00 08/31/18 03:00 Temperature Pulse Rate 86 88 88 Respiratory Rate Blood Pressure Pulse Oximetry 08/31/18 04:00 08/31/18 05:00 08/31/18 06:00 Temperature 98.1 F Pulse Rate 97 H 91 H 89 Respiratory Rate 20 Blood Pressure 103/70 Pulse Oximetry 94 L 08/31/18 07:00 08/31/18 07:48 08/31/18 08:00 Temperature 98.5 F Pulse Rate 94 H 96 H 104 H Respiratory Rate 16 Blood Pressure 120/78 Pulse Oximetry 97 97 08/31/18 09:00 08/31/18 10:00 08/31/18 11:46 Temperature 98.9 F Pulse Rate 102 H 140 H 145 H Respiratory Rate 18 Blood Pressure 128/71 Pulse Oximetry 94 L Intake & Output 08/30/18 08/31/18 08/31/18 18:59 06:59 18:59 Intake Total 745 / 745 240 / 240 Output Total 700 / 700 Balance 745 / 745 -460 / -460 Weight 57.8 kg Intake: IV 25 / 25 Cardizem Inj 125 MG In NS Inj 25 / 25 100 ML @ 5 MG/HR 5 mls/hr IV. CONT TITRATE PRN Rx#:[id number] Oral 720 / 720 240 / 240 Output: Urine 700 / 700 Other: # Voids 5 Date of Last Bowel Movement 08/30/18 08/30/18 # Bowel Movements 2 0 - Constitutional no acute distress - Routine Neck Exam Absent: JVD - Routine Respiratory Exam Comments: Minimal basilar crackles. - Routine Cardiovascular Exam Present: S1, S2, tachycardia, irregular rhythm. Absent: murmur, gallop - Routine Abdominal Exam Present: soft, normoactive bowel sounds. Absent: tenderness, organomegaly - Routine Extremities Exam Absent: cyanosis, clubbing, edema Results 08/31/18 07:37 08/31/18 07:37 Cardiac Enzymes 08/29/18 Range/Units 12:47 AST 16 (15-37) U/L Troponin I Less than 0.02 L (0.02-0.05) ng/mL Coagulation 08/29/18 08/30/18 08/31/18 Range/Units 12:47 07:12 07:37 PT 41.4 H 45.3 H 31.6 H D (9.8-11.6) sec APTT 46.7 H (23.4-31.7) sec CBC 08/29/18 08/30/18 08/31/18 Range/Units 12:47 07:12 07:37 WBC 11.5 H 8.3 11.5 H (4.0-11.0) th/mm3 RBC 4.14 3.49 L 3.96 L (4.00-5.30) mil/mm3 Hgb 9.2 L 8.0 L 8.9 L (11.6-15.3) gm/dL Hct 30.0 L 25.2 L 27.9 L (35.0-46.0) % Plt Count 253 191 220 (150-450) th/mm3 Neut # (Auto) 9.2 H 5.8 8.9 H (1.8-7.7) th/mm3 Lymph # (Auto) 1.1 1.2 1.2 (1.0-4.8) th/mm3 Fajardo # (Auto) 1.1 H 1.1 H 1.2 H (0.0-0.9) th/mm3 Eos # (Auto) 0.1 0.2 0.2 (0.0-0.4) th/mm3 Baso # (Auto) 0.1 0.1 0.1 (0.0-0.2) th/mm3 Comprehensive Metabolic Panel 08/29/18 08/30/18 08/31/18 Range/Units 12:47 07:13 07:37 Sodium 143 146 H 142 (136-145) meq/L Potassium 3.7 4.0 3.4 L (3.5-5.1) meq/L Chloride 109 H 114 H 108 H (98-107) meq/L Carbon Dioxide 24.2 23.3 25.9 (21.0-32.0) meq/L BUN 16 14 14 (7-18) mg/dL Creatinine 1.17 H 1.01 H 1.02 H (0.50-1.00) mg/dL Calcium 9.1 8.5 8.6 (8.5-10.1) mg/dL AST 16 (15-37) U/L ALT 17 (10-53) U/L Alkaline Phosphatase 63 (45-117) U/L Total Protein 7.1 (6.4-8.2) g/dL Albumin 3.6 (3.4-5.0) g/dL Intake and Output 08/30/18 08/31/18 08/31/18 22:59 06:59 14:59 Intake Total 720 / 720 240 / 240 Output Total 700 / 700 Balance 720 / 720 -460 / -460 Intake: Oral 720 / 720 240 / 240 Output: Urine 700 / 700 Other: # Voids 5 Date of Last Bowel Movement 08/30/18 08/30/18 # Bowel Movements 2 0 Weight 57.8 kg - Imaging and Cardiology Imaging: Impressions Chest X-Ray 08/29/18 12:40 CONCLUSION: Cardiomegaly without evidence of acute cardiopulmonary process. Abdomen X-Ray 08/30/18 00:00 CONCLUSION: 1. Nonobstructive bowel gas pattern. Assessment and Plan - Assessment (1) Paroxysmal atrial fibrillation Code(s): I48.0 - Paroxysmal atrial fibrillation Status: Chronic Plan: HR currently 140's at rest. Patient completely asymptomatic. Recommend consider resume warfarin, resume digoxin and add beta tahmina. Can discharge when HR's optimally controlled. (2) Hypertension Code(s): I10 - Essential (primary) hypertension Status: Chronic Plan: Stable. Normotensive. - Plan Code Status: full code Discussed Condition With: patient (2) Hypertension Qualifiers: Hypertension type: essential hypertension Qualified Code(s): I10 - Essential (primary) hypertension
[2018-08-31] MEDS ORDERED: Digoxin 125 MCG Tablet PO SCH (12:00)
[2018-08-31] MEDS: Metoprolol Tartrate 25 MG Tablet PO SCH ×2 (12:45→20:18)
[2018-09-01] MEDS: Levothyroxine 100 MCG Tablet PO SCH (05:40)
--- NOTE | 2018-09-01 07:49 | P.DCO ---
Diagnosis (1) Paroxysmal atrial fibrillation: Status: Chronic (2) Hypertension: Status: Chronic Physical Therapy Order: Evaluate and treat and Improve ambulation Home Health Nursing Order: Medical education and Nursing assessment with vital signs Case Management Consult Case Management Consult-Home Health: Yes I have seen patient Evelyne Caasnova on 09/01/18. My clinical findings support the need for the requested home health care services because: Deconditioned with increased weakness, Limited ability to care for self and High risk of falls I certify that my clinical findings support that this patient is homebound because: _ (1) Hypertension Qualifiers: Hypertension type: essential hypertension Qualified Code(s): I10 - Essential (primary) hypertension
--- NOTE | 2018-09-01 09:19 | P.PNIM ---
Subjective Interval history: Follow-up for atrial fibrillation No overnight events, heart rate still in the 120s when exerting, otherwise mostly in the high 90s. No shortness of breath, no chest pain, no palpitations. Blood pressure in the 90s. Good bowel movements. Physical Exam Vital signs: Last Vital Signs Temp 98 F 09/01/18 04:00 Pulse 99 H 09/01/18 06:00 Resp 18 09/01/18 04:00 BP 91/59 L 09/01/18 04:00 Pulse Ox 95 09/01/18 04:00 Intake & Output 08/30/18 08/31/18 09/01/18 09/02/18 06:59 06:59 06:59 06:59 Intake Total 640 / 640 985 / 985 1160 / 1160 Output Total 325 / 325 700 / 700 1969 / 1970 Balance 315 / 315 285 / 285 -810 / -810 Weight 57.3 kg 57.8 kg 55 kg Narrative: GENERAL: Not in distress CARDIOVASCULAR: Irregular rhythm, heart rate in the 90s. RESPIRATORY: No accessory muscle use. GASTROINTESTINAL: Abdomen soft, mildly tender, nondistended, small ventral hernia reducible with normal active bowel sounds MUSCULOSKELETAL: Extremities without clubbing, cyanosis, 1+ edema. NEUROLOGICAL: Awake and alert to person place time and situation. No obvious cranial nerve deficits. Motor grossly within normal limits. Five out of 5 muscle strength in the arms and legs. Normal speech. Results Labs CBC & Chem 7: 08/31/18 07:37 08/31/18 07:37 Assessment and Plan (1) Paroxysmal atrial fibrillation: Code(s): I48.0 - Paroxysmal atrial fibrillation Status: Chronic (2) Hypertension: Code(s): I10 - Essential (primary) hypertension Status: Chronic Plan 88-year-old white female was sent from her primary care physician's office due to findings of week and fast pulse, upon admission, the patient was found to be in atrial fibrillation with rapid ventricular rate. Patient was initially given adenosine and Cardizem, was on Cardizem drip, switch to oral. Uptitrated to Cardizem 250 mg daily. Cardiology was consulted. Verapamil was stopped, warfarin was held because of supratherapeutic INR on admission. Patient was also restarted on digoxin. TSH within normal limits. Echocardiogram done 08/30 showed an ejection fraction of 60-65% with normal left ventricular size. No thrombus noted. Atrial fibrillation with rapid ventricular ratestill having heart rate in the 120s when ambulating/on exertion, mostly in the high 90s at rest. Given digoxin yesterday, would load with digoxin 500 mcg a day, recheck levels tomorrow. Continue Cardizem LA, Metoprol added yesterday. Check potassium and magnesium Supratherapeutic INR, coagulation abnormality-INR was high, awaiting INR today, restart warfarin once INR is within range. Severe constipation-resolved, abdominal x-ray showed normal bowel pattern. History of hypothyroidismresume home levothyroxine. TSH within normal limits. History hyperlipidemiacontinue statin. Lower extremity edema-Bumex on hold because of hypotension, echocardiogram as above. Possible acute kidney injury with no comparison for any recent GFR, last GFR available is in 2008 at 68. We will monitor closely renal function on diuretic, creatinine stable, recheck BMP tomorrow, patient does not have a grommet worker. Microcytic anemialikely may be chronic, hemoglobin stable. MCV low, RDW within high normal. Will check iron panel. DVT prophylaxishold warfarin due to elevated INR. Discharge reviewed walker and home health care physical therapy when heart rate is more controlled. _ (1) Hypertension Qualifiers: Hypertension type: essential hypertension Qualified Code(s): I10 - Essential (primary) hypertension
[2018-09-01] MEDS ORDERED: Digoxin 250 MCG Tablet PO ONE (09:45)
[2018-09-01] MEDS: dilTIAZem CD 240 MG Capsule PO SCH (10:22)
[2018-09-01] MEDS: Lactic Acid (Ammonium Lactate) 12% Lotion 225 GM Bottle TOPICAL SCH ×2 (10:23→20:44)
[2018-09-01] MEDS: Metoprolol Tartrate 25 MG Tablet PO SCH ×3 (10:23→19:50)
[2018-09-01 10:47] LABS: INR 1.7 Ratio; Prothrombin Time 17.6 sec (9.8-11.6)
--- NOTE | 2018-09-01 12:17 | P.PNCA ---
Subjective Interval history: Denies palpitations, CP, dyspnea, dizziness. Slept well. Medications and Allergies Active Medications: Active Medications Acetaminophen (Tylenol) 650 mg PO Q4H PRN PRN Reason: Temp > 100.4 Last Admin: 08/30/18 06:31 Dose: 650 mg Al Hydroxide/Mg Hydroxide (Milk Of Magnesia Liq) 30 ml PO Q12H PRN PRN Reason: Mild Constipation Bisacodyl (Dulcolax Supp) 10 mg RECTAL DAILY PRN PRN Reason: SEVERE CONSITIPATION Bumetanide (Bumex) 1 mg PO DAILY [facility] Last Admin: 09/01/18 10:23 Dose: 1 mg Digoxin (Lanoxin) 125 mcg PO DAILY [facility] Diltiazem HCl (Cardizem Cd 24hr) 240 mg PO DAILY [facility] Last Admin: 09/01/18 10:22 Dose: 240 mg Lactic Acid (Lac-Hydrin 12% Lotion) 1 applicatio TOPICAL BID [facility] Stop: 09/05/18 20:59 Last Admin: 09/01/18 10:23 Dose: 1 applicatio Lactulose (Lactulose Liq) 30 ml PO DAILY PRN PRN Reason: SEVERE CONSITIPATION Lactulose (Lactulose Liq) 30 ml PO DAILY PRN PRN Reason: CONSTIPATION Levothyroxine Sodium (Synthroid) 100 mcg PO DAILY@0600 [facility] Last Admin: 09/01/18 05:40 Dose: 100 mcg Metoprolol Tartrate (Lopressor) 25 mg PO TID [facility] Last Admin: 09/01/18 10:23 Dose: 25 mg Ondansetron HCl (Zofran Inj) 4 mg IV.PUSH Q6H PRN PRN Reason: NAUSEA OR VOMITING Potassium Chloride (Klor-Con 10) 10 meq PO DAILY [facility] Last Admin: 09/01/18 10:22 Dose: 10 meq Pravastatin Sodium (Pravachol) 40 mg PO DAILY [facility] Last Admin: 09/01/18 10:23 Dose: 40 mg Sennosides (Senokot) 17.2 mg PO Q12H PRN PRN Reason: Moderate Constipation Sodium Chloride (Ns Flush) 2 ml IV.FLUSH BID [facility] Last Admin: 09/01/18 10:23 Dose: 2 ml Sodium Chloride (Ns Flush) 2 ml IV.FLUSH PRN PRN PRN Reason: FLUSH AFTER USING IV ACCESS Allergies Allergy/AdvReac Type Severity Reaction Status Date / Time aspirin Allergy Unknown Bleeding Unverified 08/29/18 12:33 Home Medications Medication Instructions Recorded Confirmed Type alendronate [Fosamax] 70 mg PO QWEEK 08/29/18 08/29/18 History bumetanide 1 mg PO DAILY 08/29/18 08/29/18 History digoxin [Lanoxin] 0.125 mg PO DAILY 08/29/18 08/29/18 History levothyroxine 100 mcg PO DAILY 08/29/18 08/29/18 History potassium chloride 10 meq PO DAILY 08/29/18 08/29/18 History pravastatin 40 mg PO DAILY 08/29/18 08/29/18 History verapamil 120 mg PO HS 08/29/18 08/29/18 History warfarin [Jantoven] 2.5 mg PO 3XW 08/29/18 08/29/18 History warfarin [Jantoven] 5 mg PO 4XW 08/29/18 08/29/18 History Physical Exam Vital signs: Vital Signs 08/31/18 12:44 08/31/18 13:00 08/31/18 14:00 Temperature Pulse Rate 134 H 96 H 87 Respiratory Rate Blood Pressure 116/74 Pulse Oximetry 96 08/31/18 15:00 08/31/18 15:16 08/31/18 15:38 Temperature 97.5 F L Pulse Rate 79 86 Respiratory Rate 18 Blood Pressure 94/53 L 98/53 L Pulse Oximetry 96 87 L 08/31/18 15:40 08/31/18 15:44 08/31/18 16:00 Temperature Pulse Rate 86 Respiratory Rate Blood Pressure 101/59 L 108/60 Pulse Oximetry 96 100 08/31/18 17:00 08/31/18 18:00 08/31/18 18:04 Temperature Pulse Rate 98 H 98 H Respiratory Rate Blood Pressure 110/68 Pulse Oximetry 08/31/18 19:00 08/31/18 20:00 08/31/18 21:00 Temperature 98 F Pulse Rate 90 84 86 Respiratory Rate 18 Blood Pressure 100/61 Pulse Oximetry 95 08/31/18 21:06 08/31/18 22:00 08/31/18 23:00 Temperature Pulse Rate 82 89 Respiratory Rate Blood Pressure Pulse Oximetry 95 08/31/18 23:55 08/31/18 23:56 09/01/18 01:00 Temperature 97.8 F Pulse Rate 98 H 98 H 101 H Respiratory Rate 18 Blood Pressure 102/63 Pulse Oximetry 96 09/01/18 02:00 09/01/18 03:00 09/01/18 04:00 Temperature 98 F Pulse Rate 100 H 101 H 110 H Respiratory Rate 18 Blood Pressure 91/59 L Pulse Oximetry 95 09/01/18 05:00 09/01/18 06:00 Temperature Pulse Rate 97 H 99 H Respiratory Rate Blood Pressure Pulse Oximetry Intake & Output 08/31/18 09/01/18 09/01/18 18:59 06:59 18:59 Intake Total 920 / 920 240 / 240 Output Total 1470 / 1470 500 / 500 Balance -550 / -550 -260 / -260 Weight 55 kg Intake: Oral 920 / 920 240 / 240 Output: Urine 1470 / 1470 500 / 500 Other: Date of Last Bowel Movement 08/30/18 08/30/18 # Bowel Movements 0 - Constitutional no acute distress - Routine Neck Exam Absent: JVD - Routine Respiratory Exam Present: CTA bilaterally - Routine Cardiovascular Exam Present: S1, S2, irregular rhythm. Absent: murmur, gallop - Routine Abdominal Exam Present: soft, normoactive bowel sounds. Absent: tenderness, organomegaly - Routine Extremities Exam Absent: cyanosis, clubbing, edema Results 08/31/18 07:37 08/31/18 07:37 Coagulation 08/31/18 09/01/18 Range/Units 07:37 10:17 PT 31.6 H D 17.6 H D (9.8-11.6) sec CBC 08/31/18 Range/Units 07:37 WBC 11.5 H (4.0-11.0) th/mm3 RBC 3.96 L (4.00-5.30) mil/mm3 Hgb 8.9 L (11.6-15.3) gm/dL Hct 27.9 L (35.0-46.0) % Plt Count 220 (150-450) th/mm3 Neut # (Auto) 8.9 H (1.8-7.7) th/mm3 Lymph # (Auto) 1.2 (1.0-4.8) th/mm3 [place] # (Auto) 1.2 H (0.0-0.9) th/mm3 Eos # (Auto) 0.2 (0.0-0.4) th/mm3 Baso # (Auto) 0.1 (0.0-0.2) th/mm3 Comprehensive Metabolic Panel 08/31/18 Range/Units 07:37 Sodium 142 (136-145) meq/L Potassium 3.4 L (3.5-5.1) meq/L Chloride 108 H (98-107) meq/L Carbon Dioxide 25.9 (21.0-32.0) meq/L BUN 14 (7-18) mg/dL Creatinine 1.02 H (0.50-1.00) mg/dL Calcium 8.6 (8.5-10.1) mg/dL Intake and Output 08/31/18 09/01/18 09/01/18 22:59 06:59 14:59 Intake Total 920 / 920 240 / 240 Output Total 1470 / 1470 500 / 500 Balance -550 / -550 -260 / -260 Intake: Oral 920 / 920 240 / 240 Output: Urine 1470 / 1470 500 / 500 Other: Date of Last Bowel Movement 08/30/18 08/30/18 # Bowel Movements 0 Weight 55 kg - Imaging and Cardiology Imaging: Impressions Abdomen X-Ray 08/30/18 00:00 CONCLUSION: 1. Nonobstructive bowel gas pattern. Assessment and Plan - Assessment (1) Paroxysmal atrial fibrillation Code(s): I48.0 - Paroxysmal atrial fibrillation Status: Chronic Plan: HR's overall better, normal at rest. Patient completely asymptomatic. Recommend continue warfarin/metoprolol/Cardizem CD. Increase digoxin dose to 0.25 mg qd as BP's too low to increase other medications. OK for discharge later today from a cardiac standpoint. (2) Hypertension Code(s): I10 - Essential (primary) hypertension Status: Chronic Plan: Stable. Low normal BP's today. - Plan Code Status: full Discussed Condition With: patient (2) Hypertension Qualifiers: Hypertension type: essential hypertension Qualified Code(s): I10 - Essential (primary) hypertension
[2018-09-01 13:15] LABS: Calcium 8.6 mg/dL (8.5-10.1); Carbon Dioxide 28.7 meq/L (21.0-32.0); Magnesium 1.8 mg/dL (1.5-2.5); Potassium 3.2 meq/L (3.5-5.1)
[2018-09-01] MEDS ORDERED: Warfarin Consult Pharmacy OTHER PRN (16:03)
[2018-09-02] MEDS: Levothyroxine 100 MCG Tablet PO SCH (05:42)
[2018-09-02 07:32] LABS: Baso # (Auto) 0.1 th/mm3 (0.0-0.2); Baso % (Auto) 0.5 % (0.0-2.0); Hematocrit 31.5 % (35.0-46.0); Hemoglobin 9.9 gm/dL (11.6-15.3); Lymph % (Auto) 4.3 % (9.0-44.0); Mean Corpuscular HGB Conc 31.3 % (32.0-36.0); Mean Corpuscular Hemoglobin 22.1 pg (27.0-34.0); Mean Corpuscular Volume 70.5 fL (80.0-100.0); Mean Platelet Volume 10.8 fL (7.0-11.0); Mono # (Auto) 2.8 th/mm3 (0.0-0.9); Neut # (Auto) 19.4 th/mm3 (1.8-7.7); Neut % (Auto) 83.2 % (16.0-70.0); Platelet Count 249 th/mm3 (150-450); Red Blood Count 4.47 mil/mm3 (4.00-5.30); Red Cell Distribution Width 17.3 % (11.6-17.2); White Blood Count 23.3 th/mm3 (4.0-11.0)
[2018-09-02 07:50] LABS: INR 1.5 Ratio; Prothrombin Time 14.7 sec (9.8-11.6)
[2018-09-02 08:02] LABS: Carbon Dioxide 27.5 meq/L (21.0-32.0); Potassium 3.1 meq/L (3.5-5.1)
[2018-09-02 08:18] LABS: % Iron Saturation 3.5 % (20-50); Digoxin 1.7 ng/mL (0.8-2.0)
--- NOTE | 2018-09-02 08:50 | P.PNCA ---
Subjective Interval history: Denies CP, dyspnea, palpitations, nausea, dizziness. Appetite decreased. Medications and Allergies Active Medications: Active Medications Acetaminophen (Tylenol) 650 mg PO Q4H PRN PRN Reason: Temp > 100.4 Last Admin: 08/30/18 06:31 Dose: 650 mg Al Hydroxide/Mg Hydroxide (Milk Of Magnesia Liq) 30 ml PO Q12H PRN PRN Reason: Mild Constipation Bisacodyl (Dulcolax Supp) 10 mg RECTAL DAILY PRN PRN Reason: SEVERE CONSITIPATION Bumetanide (Bumex) 1 mg PO DAILY [facility] Last Admin: 09/01/18 10:23 Dose: 1 mg Digoxin (Lanoxin) 250 mcg PO DAILY [facility] Diltiazem HCl (Cardizem Cd 24hr) 240 mg PO DAILY [facility] Last Admin: 09/01/18 10:22 Dose: 240 mg Lactic Acid (Lac-Hydrin 12% Lotion) 1 applicatio TOPICAL BID [facility] Stop: 09/05/18 20:59 Last Admin: 09/01/18 20:44 Dose: 1 applicatio Lactulose (Lactulose Liq) 30 ml PO DAILY PRN PRN Reason: SEVERE CONSITIPATION Lactulose (Lactulose Liq) 30 ml PO DAILY PRN PRN Reason: CONSTIPATION Levothyroxine Sodium (Synthroid) 100 mcg PO DAILY@0600 [facility] Last Admin: 09/02/18 05:42 Dose: 100 mcg Metoprolol Tartrate (Lopressor) 25 mg PO TID [facility] Last Admin: 09/01/18 19:50 Dose: 25 mg Ondansetron HCl (Zofran Inj) 4 mg IV.PUSH Q6H PRN PRN Reason: NAUSEA OR VOMITING Pharmacy Profile Note (Coumadin Consult Pharmacy) 1 each OTHER UNSCH PRN PRN Reason: PHARMACY DOCUMENTATION Potassium Chloride (Klor-Con 10) 10 meq PO DAILY [facility] Last Admin: 09/01/18 10:22 Dose: 10 meq Pravastatin Sodium (Pravachol) 40 mg PO DAILY [facility] Last Admin: 09/01/18 10:23 Dose: 40 mg Sennosides (Senokot) 17.2 mg PO Q12H PRN PRN Reason: Moderate Constipation Sodium Chloride (Ns Flush) 2 ml IV.FLUSH BID [facility] Last Admin: 09/01/18 20:44 Dose: 2 ml Sodium Chloride (Ns Flush) 2 ml IV.FLUSH PRN PRN PRN Reason: FLUSH AFTER USING IV ACCESS Warfarin Sodium (Coumadin) 5 mg PO DAILY@1600 [facility] Allergies Allergy/AdvReac Type Severity Reaction Status Date / Time aspirin Allergy Unknown Bleeding Unverified 08/29/18 12:33 Home Medications Medication Instructions Recorded Confirmed Type alendronate [Fosamax] 70 mg PO QWEEK 08/29/18 08/29/18 History bumetanide 1 mg PO DAILY 08/29/18 08/29/18 History digoxin [Lanoxin] 0.125 mg PO DAILY 08/29/18 08/29/18 History levothyroxine 100 mcg PO DAILY 08/29/18 08/29/18 History potassium chloride 10 meq PO DAILY 08/29/18 08/29/18 History pravastatin 40 mg PO DAILY 08/29/18 08/29/18 History verapamil 120 mg PO HS 08/29/18 08/29/18 History warfarin [Jantoven] 2.5 mg PO 3XW 08/29/18 08/29/18 History warfarin [Jantoven] 5 mg PO 4XW 08/29/18 08/29/18 History Physical Exam Vital signs: Vital Signs 09/01/18 09:00 09/01/18 10:00 09/01/18 11:00 Temperature Pulse Rate 130 H 104 H 102 H Respiratory Rate Blood Pressure Pulse Oximetry 09/01/18 12:00 09/01/18 13:00 09/01/18 14:00 Temperature 98.0 F Pulse Rate 100 H 102 H 96 H Respiratory Rate 18 Blood Pressure 123/83 Pulse Oximetry 97 09/01/18 15:00 09/01/18 16:00 09/01/18 17:00 Temperature 98.2 F Pulse Rate 88 84 80 Respiratory Rate 18 Blood Pressure 105/64 Pulse Oximetry 96 09/01/18 18:00 09/01/18 19:00 09/01/18 20:00 Temperature 98 F Pulse Rate 70 79 88 Respiratory Rate 18 Blood Pressure 100/62 Pulse Oximetry 95 09/01/18 21:00 09/01/18 22:00 09/01/18 23:00 Temperature Pulse Rate 92 H 95 H 101 H Respiratory Rate Blood Pressure Pulse Oximetry 09/02/18 00:00 09/02/18 01:00 09/02/18 02:00 Temperature 98.8 F Pulse Rate 103 H 89 100 H Respiratory Rate 18 Blood Pressure 99/61 L Pulse Oximetry 96 09/02/18 03:00 09/02/18 04:00 09/02/18 05:00 Temperature 98.3 F Pulse Rate 96 H 107 H 93 H Respiratory Rate 18 Blood Pressure 100/55 L Pulse Oximetry 95 09/02/18 06:00 Temperature Pulse Rate 105 H Respiratory Rate Blood Pressure Pulse Oximetry Intake & Output 09/01/18 09/02/18 09/02/18 18:59 06:59 18:59 Intake Total 740 / 740 240 / 240 Output Total 1000 / 1000 600 / 600 Balance -260 / -260 -360 / -360 Weight 55.5 kg Intake: Oral 740 / 740 240 / 240 Output: Urine 1000 / 1000 600 / 600 Other: Date of Last Bowel Movement 08/30/18 08/30/18 # Bowel Movements 0 - Constitutional no acute distress - Routine Neck Exam Absent: JVD - Routine Respiratory Exam Present: CTA bilaterally - Routine Cardiovascular Exam Present: S1, S2, tachycardia. Absent: murmur, gallop - Routine Abdominal Exam Present: soft, normoactive bowel sounds. Absent: tenderness, organomegaly - Routine Extremities Exam Absent: cyanosis, clubbing, edema Results 09/02/18 05:13 09/02/18 05:13 Coagulation 09/01/18 09/02/18 Range/Units 10:17 05:13 PT 17.6 H D 14.7 H (9.8-11.6) sec CBC 09/02/18 Range/Units 05:13 WBC 23.3 H (4.0-11.0) th/mm3 RBC 4.47 (4.00-5.30) mil/mm3 Hgb 9.9 L (11.6-15.3) gm/dL Hct 31.5 L (35.0-46.0) % Plt Count 249 (150-450) th/mm3 Neut # (Auto) 19.4 H (1.8-7.7) th/mm3 Lymph # (Auto) 1.0 (1.0-4.8) th/mm3 [place] # (Auto) 2.8 H (0.0-0.9) th/mm3 Eos # (Auto) 0.0 (0.0-0.4) th/mm3 Baso # (Auto) 0.1 (0.0-0.2) th/mm3 Comprehensive Metabolic Panel 09/01/18 09/02/18 Range/Units 12:40 05:13 Sodium 140 139 (136-145) meq/L Potassium 3.2 L 3.1 L (3.5-5.1) meq/L Chloride 105 103 (98-107) meq/L Carbon Dioxide 28.7 27.5 (21.0-32.0) meq/L BUN 16 18 (7-18) mg/dL Creatinine 0.94 0.93 (0.50-1.00) mg/dL Calcium 8.6 9.0 (8.5-10.1) mg/dL Intake and Output 09/01/18 09/02/18 09/02/18 22:59 06:59 14:59 Intake Total 740 / 740 240 / 240 Output Total 1000 / 1000 600 / 600 Balance -260 / -260 -360 / -360 Intake: Oral 740 / 740 240 / 240 Output: Urine 1000 / 1000 600 / 600 Other: Date of Last Bowel Movement 08/30/18 08/30/18 # Bowel Movements 0 Weight 55.5 kg Assessment and Plan - Assessment (1) Paroxysmal atrial fibrillation Code(s): I48.0 - Paroxysmal atrial fibrillation Status: Chronic Plan: Still intermittently tachycardic, at rest. May be in an atrial tachycardia or flutter at present. Patient completely asymptomatic. Recommend continue warfarin/metoprolol/Cardizem CD/digoxin. Try to increase metoprolol dosing to 50 mg bid. Consider Amiodarone for HR control. (2) Hypertension Code(s): I10 - Essential (primary) hypertension Status: Chronic Plan: Stable. Low normal BP's. - Plan Code Status: full Discussed Condition With: patient (2) Hypertension Qualifiers: Hypertension type: essential hypertension Qualified Code(s): I10 - Essential (primary) hypertension
[2018-09-02] MEDS: Metoprolol Tartrate 25 MG Tablet PO SCH (08:58)
[2018-09-02] MEDS: dilTIAZem CD 240 MG Capsule PO SCH (08:58)
[2018-09-02] MEDS: Digoxin 250 MCG Tablet PO SCH (08:58)
[2018-09-02] MEDS: Lactic Acid (Ammonium Lactate) 12% Lotion 225 GM Bottle TOPICAL SCH ×2 (08:58→20:50)
[2018-09-02] MEDS ORDERED: Digoxin 125 MCG Tablet PO SCH (09:00)
--- NOTE | 2018-09-02 10:03 | P.PNIM ---
Subjective Interval history: Patient says she is feeling all right. Denies any chest pain or shortness of breath. She has decreased appetite. Denies any abdominal pain Physical Exam Vital signs: Vital Signs 09/01/18 10:00 09/01/18 11:00 09/01/18 12:00 Temperature 98.0 F Pulse Rate 104 H 102 H 100 H Respiratory Rate 18 Blood Pressure 123/83 Pulse Oximetry 97 09/01/18 13:00 09/01/18 14:00 09/01/18 15:00 Temperature Pulse Rate 102 H 96 H 88 Respiratory Rate Blood Pressure Pulse Oximetry 09/01/18 16:00 09/01/18 17:00 09/01/18 18:00 Temperature 98.2 F Pulse Rate 84 80 70 Respiratory Rate 18 Blood Pressure 105/64 Pulse Oximetry 96 09/01/18 19:00 09/01/18 20:00 09/01/18 21:00 Temperature 98 F Pulse Rate 79 88 92 H Respiratory Rate 18 Blood Pressure 100/62 Pulse Oximetry 95 09/01/18 22:00 09/01/18 23:00 09/02/18 00:00 Temperature 98.8 F Pulse Rate 95 H 101 H 103 H Respiratory Rate 18 Blood Pressure 99/61 L Pulse Oximetry 96 09/02/18 01:00 09/02/18 02:00 09/02/18 03:00 Temperature Pulse Rate 89 100 H 96 H Respiratory Rate Blood Pressure Pulse Oximetry 09/02/18 04:00 09/02/18 05:00 09/02/18 06:00 Temperature 98.3 F Pulse Rate 107 H 93 H 105 H Respiratory Rate 18 Blood Pressure 100/55 L Pulse Oximetry 95 09/02/18 08:00 Temperature 98.2 F Pulse Rate 106 H Respiratory Rate 18 Blood Pressure 124/77 Pulse Oximetry 98 Intake & Output 09/01/18 09/02/18 09/02/18 18:59 06:59 18:59 Intake Total 740 / 740 240 / 240 Output Total 1000 / 1000 600 / 600 Balance -260 / -260 -360 / -360 Weight 55.5 kg Intake: Oral 740 / 740 240 / 240 Output: Urine 1000 / 1000 600 / 600 Other: Date of Last Bowel Movement 08/30/18 08/30/18 08/30/18 # Bowel Movements 0 Narrative: GENERAL: Patient lying in bed. Appears comfortable. SKIN: Warm and dry. HEAD: Normocephalic. EYES: No scleral icterus. No injection or drainage. NECK: Supple, trachea midline. No JVD. CARDIOVASCULAR: Irregularly irregular rhythm without murmurs, gallops, or rubs. Heart rate in the 100s RESPIRATORY: Breath sounds equal bilaterally. No accessory muscle use. GASTROINTESTINAL: Abdomen soft, non-tender. Slightly distended and hyperresonant. Nontender. No rebound or guarding. Positive bowel sounds. MUSCULOSKELETAL: No cyanosis, or edema. BACK: Nontender without obvious deformity. No CVA tenderness. Results - Labs CBC & Chem 7: 09/02/18 05:13 09/02/18 05:13 Laboratory Results - last 24 hr 09/01/18 09/01/18 09/02/18 10:17 12:40 05:13 WBC RBC Hgb Hct MCV MCH MCHC RDW Plt Count MPV Prelim Diff (Auto) Neut % (Auto) Lymph % (Auto) [place] % (Auto) Eos % (Auto) Baso % (Auto) Neut # (Auto) Lymph # (Auto) [place] # (Auto) Eos # (Auto) Baso # (Auto) WBC Differential Diff Scan Differential Comment PT 17.6 H D 14.7 H INR 1.7 1.5 Sodium 140 Potassium 3.2 L Chloride 105 Carbon Dioxide 28.7 Anion Gap 6 BUN 16 Creatinine 0.94 Estimated GFR 56 L Random Glucose 101 Calcium 8.6 Magnesium 1.8 Iron TIBC % Saturation Digoxin 09/02/18 09/02/18 05:13 05:13 WBC 23.3 H RBC 4.47 Hgb 9.9 L Hct 31.5 L MCV 70.5 L MCH 22.1 L MCHC 31.3 L RDW 17.3 H Plt Count 249 MPV 10.8 Prelim Diff (Auto) Slide review pending Neut % (Auto) 83.2 H Lymph % (Auto) 4.3 L [place] % (Auto) 12.0 H Eos % (Auto) 0.0 Baso % (Auto) 0.5 Neut # (Auto) 19.4 H Lymph # (Auto) 1.0 [place] # (Auto) 2.8 H Eos # (Auto) 0.0 Baso # (Auto) 0.1 WBC Differential . Diff Scan Auto diff confirmed Differential Comment . PT INR Sodium 139 Potassium 3.1 L Chloride 103 Carbon Dioxide 27.5 Anion Gap 9 BUN 18 Creatinine 0.93 Estimated GFR 57 L Random Glucose 107 H Calcium 9.0 Magnesium Iron 14 L TIBC 400 % Saturation 3.5 L Digoxin 1.7 Assessment and Plan - Assessment (1) Paroxysmal atrial fibrillation Code(s): I48.0 - Paroxysmal atrial fibrillation Status: Chronic (2) Hypertension Code(s): I10 - Essential (primary) hypertension Status: Chronic - Plan 88-year-old white female was sent from her primary care physician's office due to findings of week and fast pulse, upon admission, the patient was found to be in atrial fibrillation with rapid ventricular rate. Patient was initially given adenosine and Cardizem, was on Cardizem drip, switch to oral. Uptitrated to Cardizem 250 mg daily. Cardiology was consulted. Verapamil was stopped, warfarin was held because of supratherapeutic INR on admission. Patient was also restarted on digoxin. TSH within normal limits. Echocardiogram done 08/30 showed an ejection fraction of 60-65% with normal left ventricular size. No thrombus noted. //Atrial fibrillation with rapid ventricular ratestill having heart rate in the 120s when ambulating/on exertion, mostly in the high 90s at rest. Given digoxin yesterday, would load with digoxin 500 mcg a day, recheck levels tomorrow. Continue Cardizem LA, Metoprol added yesterday. Check potassium and magnesium = 09/02. Heart rate still elevated in the 100s-110s. Metoprolol increased by cardiology. Continue to monitor. Appreciate cardiology assistance. //Supratherapeutic INR, coagulation abnormality-INR was high, awaiting INR today , restart warfarin once INR is within range. = 09/02. Warfarin restarted as INR is subtherapeutic. Appreciate pharmacy assistance. //Severe constipation-resolved, abdominal x-ray showed normal bowel pattern. = 09/02. Patient will likely return of constipation. Possibly worsened by calcium channel tahmina. Will give single dose of senna. Patient will likely need daily laxatives for prevention. Discussed with patient conveys understanding. //History of hypothyroidismresume home levothyroxine. TSH within normal limits. //History hyperlipidemiacontinue statin. //Lower extremity edema-Bumex on hold because of hypotension, echocardiogram as above. = Improving. Monitor. //Possible acute kidney injury with no comparison for any recent GFR, last GFR available is in 2008 at 68. 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 //Microcytic anemialikely may be chronic, hemoglobin stable. MCV low, RDW within high normal. Will check iron panel. = Low iron but normal TIBC. Will check ferritin. //DVT prophylaxishold warfarin due to elevated INR. Discussed Condition With: patient, nurse. Discharge Planning: Discharge reviewed walker and home health care physical therapy when heart rate is more controlled. (2) Hypertension Qualifiers: Hypertension type: essential hypertension Qualified Code(s): I10 - Essential (primary) hypertension
[2018-09-02] MEDS ORDERED: Metoprolol Tartrate 25 MG Tablet PO ONE (10:15)
[2018-09-02] MEDS ORDERED: Senna/Docusate Sodium 8.6/50 MG Tablet PO ONE (10:15)
[2018-09-02] MEDS: Metoprolol Tartrate 50 MG Tablet PO SCH (20:50)
[2018-09-03] MEDS: Levothyroxine 100 MCG Tablet PO SCH (05:11)
[2018-09-03] MEDS: Acetaminophen 325 MG Tablet PO PRN (05:36)
[2018-09-03 06:30] LABS: Baso # (Auto) 0.1 th/mm3 (0.0-0.2); Baso % (Auto) 0.3 % (0.0-2.0); Hematocrit 29.3 % (35.0-46.0); Hemoglobin 9.4 gm/dL (11.6-15.3); Lymph # (Auto) 1.5 th/mm3 (1.0-4.8); Lymph % (Auto) 6.9 % (9.0-44.0); Mean Corpuscular Hemoglobin 22.3 pg (27.0-34.0); Mean Corpuscular Volume 69.7 fL (80.0-100.0); Mean Platelet Volume 10.5 fL (7.0-11.0); Mono # (Auto) 2.8 th/mm3 (0.0-0.9); Mono % (Auto) 13.6 % (0.0-8.0); Neut # (Auto) 16.6 th/mm3 (1.8-7.7); Neut % (Auto) 79.2 % (16.0-70.0); Platelet Count 245 th/mm3 (150-450); Red Blood Count 4.21 mil/mm3 (4.00-5.30); Red Cell Distribution Width 17.3 % (11.6-17.2)
[2018-09-03 06:39] LABS: INR 1.9 Ratio
[2018-09-03 07:11] LABS: Albumin 2.5 g/dL (3.4-5.0); Calcium 8.8 mg/dL (8.5-10.1); Carbon Dioxide 30.3 meq/L (21.0-32.0); Magnesium 1.9 mg/dL (1.5-2.5); Phosphorus 3.3 mg/dL (2.5-4.9); Total Protein 6.6 g/dL (6.4-8.2)
[2018-09-03 07:56] LABS: Ovalocytes 1+
[2018-09-03 07:57] LABS: Acanthocytes Occ
--- NOTE | 2018-09-03 09:26 | P.PNCA ---
Subjective Interval history: Denies palpitations, dizziness, CP, dyspnea. Medications and Allergies Active Medications: Active Medications Acetaminophen (Tylenol) 650 mg PO Q4H PRN PRN Reason: Temp > 100.4 Last Admin: 09/03/18 05:36 Dose: 650 mg Al Hydroxide/Mg Hydroxide (Milk Of Magnesia Liq) 30 ml PO Q12H PRN PRN Reason: Mild Constipation Bisacodyl (Dulcolax Supp) 10 mg RECTAL DAILY PRN PRN Reason: SEVERE CONSITIPATION Bumetanide (Bumex) 1 mg PO DAILY [facility] Last Admin: 09/02/18 08:58 Dose: 1 mg Digoxin (Lanoxin) 250 mcg PO DAILY [facility] Last Admin: 09/02/18 08:58 Dose: 250 mcg Diltiazem HCl (Cardizem Cd 24hr) 240 mg PO DAILY [facility] Last Admin: 09/02/18 08:58 Dose: 240 mg Lactic Acid (Lac-Hydrin 12% Lotion) 1 applicatio TOPICAL BID [facility] Stop: 09/05/18 20:59 Last Admin: 09/02/18 20:50 Dose: 1 applicatio Lactulose (Lactulose Liq) 30 ml PO DAILY PRN PRN Reason: SEVERE CONSITIPATION Lactulose (Lactulose Liq) 30 ml PO DAILY PRN PRN Reason: CONSTIPATION Levothyroxine Sodium (Synthroid) 100 mcg PO DAILY@0600 [facility] Last Admin: 09/03/18 05:11 Dose: 100 mcg Metoprolol Tartrate (Lopressor) 50 mg PO BID [facility] Last Admin: 09/02/18 20:50 Dose: 50 mg Ondansetron HCl (Zofran Inj) 4 mg IV.PUSH Q6H PRN PRN Reason: NAUSEA OR VOMITING Pharmacy Profile Note (Coumadin Consult Pharmacy) 1 each OTHER UNSCH PRN PRN Reason: PHARMACY DOCUMENTATION Potassium Chloride (Klor-Con 10) 10 meq PO DAILY [facility] Last Admin: 09/02/18 08:58 Dose: 10 meq Pravastatin Sodium (Pravachol) 40 mg PO DAILY [facility] Last Admin: 09/02/18 08:58 Dose: 40 mg Sennosides (Senokot) 17.2 mg PO Q12H PRN PRN Reason: Moderate Constipation Sodium Chloride (Ns Flush) 2 ml IV.FLUSH BID [facility] Last Admin: 09/02/18 20:50 Dose: 2 ml Sodium Chloride (Ns Flush) 2 ml IV.FLUSH PRN PRN PRN Reason: FLUSH AFTER USING IV ACCESS Warfarin Sodium (Coumadin) 3 mg PO DAILY@1600 [facility] Allergies Allergy/AdvReac Type Severity Reaction Status Date / Time aspirin Allergy Unknown Bleeding Unverified 08/29/18 12:33 Home Medications Medication Instructions Recorded Confirmed Type alendronate [Fosamax] 70 mg PO QWEEK 08/29/18 08/29/18 History bumetanide 1 mg PO DAILY 08/29/18 08/29/18 History digoxin [Lanoxin] 0.125 mg PO DAILY 08/29/18 08/29/18 History levothyroxine 100 mcg PO DAILY 08/29/18 08/29/18 History potassium chloride 10 meq PO DAILY 08/29/18 08/29/18 History pravastatin 40 mg PO DAILY 08/29/18 08/29/18 History verapamil 120 mg PO HS 08/29/18 08/29/18 History warfarin [Jantoven] 2.5 mg PO 3XW 08/29/18 08/29/18 History warfarin [Jantoven] 5 mg PO 4XW 08/29/18 08/29/18 History Physical Exam Vital signs: Vital Signs 09/02/18 10:00 09/02/18 11:00 09/02/18 12:00 Temperature 98.0 F Pulse Rate 92 H 114 H 96 H Respiratory Rate 18 Blood Pressure 119/72 Pulse Oximetry 96 09/02/18 13:00 09/02/18 14:00 09/02/18 14:03 Temperature Pulse Rate 72 64 Respiratory Rate Blood Pressure Pulse Oximetry 96 09/02/18 15:00 09/02/18 16:00 09/02/18 17:00 Temperature 98.0 F Pulse Rate 65 72 82 Respiratory Rate 18 Blood Pressure 97/65 L Pulse Oximetry 96 09/02/18 18:00 09/02/18 19:00 09/02/18 20:00 Temperature 98.7 F Pulse Rate 102 H 84 95 H Respiratory Rate 18 Blood Pressure 98/54 L Pulse Oximetry 96 09/02/18 21:00 09/02/18 22:00 09/02/18 23:00 Temperature Pulse Rate 77 64 84 Respiratory Rate Blood Pressure Pulse Oximetry 09/03/18 00:00 09/03/18 01:00 09/03/18 02:00 Temperature 99.2 F Pulse Rate 83 81 90 Respiratory Rate 17 Blood Pressure 90/56 L Pulse Oximetry 97 09/03/18 03:00 09/03/18 04:00 09/03/18 05:00 Temperature 98.5 F Pulse Rate 86 85 92 H Respiratory Rate 16 Blood Pressure 103/65 Pulse Oximetry 97 09/03/18 06:00 09/03/18 07:36 09/03/18 07:51 Temperature 98.5 F Pulse Rate 101 H 104 H 91 H Respiratory Rate 14 Blood Pressure 96/60 L Pulse Oximetry 98 09/03/18 08:00 Temperature Pulse Rate 104 H Respiratory Rate Blood Pressure Pulse Oximetry 98 Intake & Output 09/02/18 09/03/18 09/03/18 18:59 06:59 18:59 Intake Total 760 / 760 240 / 240 Output Total 1000 / 1000 300 / 300 Balance -240 / -240 -60 / -60 Weight 50.8 kg Intake: Oral 760 / 760 240 / 240 Output: Urine 1000 / 1000 300 / 300 Other: Date of Last Bowel Movement 08/30/18 09/03/18 08/30/18 - Constitutional no acute distress - Routine Neck Exam Absent: JVD - Routine Respiratory Exam Present: CTA bilaterally - Routine Cardiovascular Exam Present: S1, S2, irregularly irregular. Absent: murmur, gallop - Routine Abdominal Exam Present: soft, normoactive bowel sounds. Absent: tenderness - Routine Extremities Exam Absent: cyanosis, clubbing, edema Results 09/03/18 05:04 09/03/18 05:04 Cardiac Enzymes 09/03/18 Range/Units 05:04 AST 13 L (15-37) U/L Coagulation 09/01/18 09/02/18 09/03/18 Range/Units 10:17 05:13 05:04 PT 17.6 H D 14.7 H 19.0 H (9.8-11.6) sec CBC 09/02/18 09/03/18 Range/Units 05:13 05:04 WBC 23.3 H 21.0 H (4.0-11.0) th/mm3 RBC 4.47 4.21 (4.00-5.30) mil/mm3 Hgb 9.9 L 9.4 L (11.6-15.3) gm/dL Hct 31.5 L 29.3 L (35.0-46.0) % Plt Count 249 245 (150-450) th/mm3 Neut # (Auto) 19.4 H 16.6 H (1.8-7.7) th/mm3 Lymph # (Auto) 1.0 1.5 (1.0-4.8) th/mm3 [place] # (Auto) 2.8 H 2.8 H (0.0-0.9) th/mm3 Eos # (Auto) 0.0 0.0 (0.0-0.4) th/mm3 Baso # (Auto) 0.1 0.1 (0.0-0.2) th/mm3 Comprehensive Metabolic Panel 09/01/18 09/02/18 09/03/18 Range/Units 12:40 05:13 05:04 Sodium 140 139 141 (136-145) meq/L Potassium 3.2 L 3.1 L 4.0 D (3.5-5.1) meq/L Chloride 105 103 103 (98-107) meq/L Carbon Dioxide 28.7 27.5 30.3 (21.0-32.0) meq/L BUN 16 18 29 H (7-18) mg/dL Creatinine 0.94 0.93 1.16 H (0.50-1.00) mg/dL Calcium 8.6 9.0 8.8 (8.5-10.1) mg/dL Direct Bilirubin 0.3 H (0.0-0.2) mg/dL Indirect Bilirubin 0.6 (0.0-0.8) mg/dL AST 13 L (15-37) U/L ALT 13 (10-53) U/L Alkaline Phosphatase 62 (45-117) U/L Total Protein 6.6 (6.4-8.2) g/dL Albumin 2.5 L (3.4-5.0) g/dL Intake and Output 09/02/18 09/03/18 09/03/18 22:59 06:59 14:59 Intake Total 760 / 760 240 / 240 Output Total 1000 / 1000 300 / 300 Balance -240 / -240 -60 / -60 Intake: Oral 760 / 760 240 / 240 Output: Urine 1000 / 1000 300 / 300 Other: Date of Last Bowel Movement 1209/03/18 08/30/18 Weight 50.8 kg Assessment and Plan - Assessment (1) Paroxysmal atrial fibrillation Code(s): I48.0 - Paroxysmal atrial fibrillation Status: Chronic Plan: HR's generally acceptable. Patient completely asymptomatic. Recommend continue warfarin/metoprolol/Cardizem CD/digoxin. INR 1.9. OK to discharge home from a cardiac standpoint. (2) Hypertension Code(s): I10 - Essential (primary) hypertension Status: Chronic Plan: Stable. Low normal BP's. - Plan Code Status: full Discussed Condition With: patient (2) Hypertension Qualifiers: Hypertension type: essential hypertension Qualified Code(s): I10 - Essential (primary) hypertension
[2018-09-03] MEDS: Digoxin 250 MCG Tablet PO SCH (09:28)
[2018-09-03] MEDS: dilTIAZem CD 240 MG Capsule PO SCH (09:28)
[2018-09-03] MEDS: Lactic Acid (Ammonium Lactate) 12% Lotion 225 GM Bottle TOPICAL SCH (09:29)
[2018-09-03] MEDS: Metoprolol Tartrate 50 MG Tablet PO SCH (09:29)
--- NOTE | 2018-09-03 13:32 | P.DCO ---
- Diagnosis (1) Hypertension Status: Chronic (2) Atrial fibrillation with RVR Status: Acute - Occupational Therapy Order: Evaluate and treat - Home Health Nursing Order: Nursing assessment with vital signs Instructions: Patient will need home health nurse for medication management. - Nat Instructor Order: To evaluate: Living conditions/environment Order: To provide: Long range planning - Case Management Consult Case Management Consult-Home Health: Yes - Certification I have seen patient Evelyne Casanova on 09/03/18. My clinical findings support the need for the requested home health care services because: Limited ability to care for self I certify that my clinical findings support that this patient is homebound because: Unsafe to leave home unassisted (1) Hypertension Qualifiers: Hypertension type: essential hypertension Qualified Code(s): I10 - Essential (primary) hypertension
--- NOTE | 2018-09-03 14:08 | P.DS ---
Date of admission: 08/29/18 14:04 Primary care physician: Clair Oliver MD Brief History from admission: 88-year-old white female with a history of hyperlipidemia, hypothyroidism was sent to the emergency room after she was seen at her primary care physician's office today and found to have a weak and fast heart rate. She states that she has been asymptomatic with no complaints of dizziness, chest pain, palpitations , diaphoresis, nor any shortness of breath. She states that she does not believe she has a history of any cardiac issues even though she is on digoxin and verapamil. She had one visit with a tuyere fitter in the distant past but was discharged from his practice. She reports chronic lower extremity swelling which is not worse however has noted some increased dry skin. She denies symptoms of orthopnea, nor any PND. She states that she lives with her daughter and usually ambulates independently. She states that she had a previous right hip fracture that was repaired and was under the impression she is on Coumadin due to the hip fracture. DS: Diagnosis - Discharge Diagnosis (1) Hypertension Status: Chronic (2) Atrial fibrillation with RVR Status: Acute (3) Paroxysmal atrial fibrillation Status: Chronic DS: Medications - Discharge Medications Prescriptions: digoxin 125 mcg PO DAILY 30 Days #15 tab diltiazem HCl 240 mg PO DAILY #30 cap metoprolol tartrate 50 mg PO BID 30 Days #60 tab sennosides [Senna Lax] 17.2 mg PO Q12H PRN #60 tab PRN Reason: Moderate Constipation DS: Summary Hospital Course: 88-year-old white female was sent from her primary care physician's office due to findings of week and fast pulse, upon admission, the patient was found to be in atrial fibrillation with rapid ventricular rate. Patient was initially given adenosine and Cardizem, was on Cardizem drip, switch to oral. Uptitrated to Cardizem 250 mg daily. Cardiology was consulted. Verapamil was stopped, warfarin was held because of supratherapeutic INR on admission. Patient was also restarted on digoxin. TSH within normal limits. Echocardiogram done 08/30 showed an ejection fraction of 60-65% with normal left ventricular size. No thrombus noted. //Atrial fibrillation with rapid ventricular ratestill having heart rate in the 120s when ambulating/on exertion, mostly in the high 90s at rest. Given digoxin yesterday, would load with digoxin 500 mcg a day, recheck levels tomorrow. Continue Cardizem LA, Metoprol added yesterday. Check potassium and magnesium = 09/02. Heart rate still elevated in the 100s-110s. Metoprolol increased by cardiology. Continue to monitor. Appreciate cardiology assistance. = 09/03. Heart rate controlled on increased beta-tahmina. //Supratherapeutic INR, coagulation abnormality-INR was high, awaiting INR today , restart warfarin once INR is within range. = 09/02. Warfarin restarted as INR is subtherapeutic. Appreciate pharmacy assistance. = 09/03. INR 1.9. Continue warfarin. //Severe constipation-resolved, abdominal x-ray showed normal bowel pattern. = 09/02. Patient will likely return of constipation. Possibly worsened by calcium channel tahmina. Will give single dose of senna. Patient will likely need daily laxatives for prevention. Discussed with patient conveys understanding. = 09/03. Patient will continue her home laxatives at home. Have ordered single dose of milk of magnesia, as well as enema. //History of hypothyroidismresume home levothyroxine. TSH within normal limits. //History hyperlipidemiacontinue statin. //Lower extremity edema-Bumex on hold because of hypotension, echocardiogram as above. = Improving. Monitor. //Possible acute kidney injury with no comparison for any recent GFR, last GFR available is in 2008 at 68. 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 //Microcytic anemialikely may be chronic, hemoglobin stable. MCV low, RDW within high normal. Will check iron panel. = Low iron but normal TIBC. Will check ferritin. //DVT prophylaxishold warfarin due to elevated INR. Discharge Planning: Discharge with walker and home health care physical therapy. Home health for medication management. -Patient will use laxatives at home. - Time Spent with Patient Total time spent providing and/or coordinating discharge services: Greater than 30 minutes Exam Vital signs: Vital Signs 09/02/18 15:00 09/02/18 16:00 09/02/18 17:00 Temperature 98.0 F Pulse Rate 65 72 82 Respiratory Rate 18 Blood Pressure 97/65 L Pulse Oximetry 96 09/02/18 18:00 09/02/18 19:00 09/02/18 20:00 Temperature 98.7 F Pulse Rate 102 H 84 95 H Respiratory Rate 18 Blood Pressure 98/54 L Pulse Oximetry 96 09/02/18 21:00 09/02/18 22:00 09/02/18 23:00 Temperature Pulse Rate 77 64 84 Respiratory Rate Blood Pressure Pulse Oximetry 09/03/18 00:00 09/03/18 01:00 09/03/18 02:00 Temperature 99.2 F Pulse Rate 83 81 90 Respiratory Rate 17 Blood Pressure 90/56 L Pulse Oximetry 97 09/03/18 03:00 09/03/18 04:00 09/03/18 05:00 Temperature 98.5 F Pulse Rate 86 85 92 H Respiratory Rate 16 Blood Pressure 103/65 Pulse Oximetry 97 09/03/18 06:00 09/03/18 07:36 09/03/18 07:51 Temperature 98.5 F Pulse Rate 101 H 104 H 91 H Respiratory Rate 14 Blood Pressure 96/60 L Pulse Oximetry 98 09/03/18 08:00 09/03/18 09:00 09/03/18 10:00 Temperature Pulse Rate 104 H 92 H 82 Respiratory Rate Blood Pressure Pulse Oximetry 98 09/03/18 10:44 Temperature Pulse Rate 90 Respiratory Rate Blood Pressure Pulse Oximetry Intake & Output 09/02/18 09/03/18 09/03/18 18:59 06:59 18:59 Intake Total 760 / 760 240 / 240 Output Total 1000 / 1000 300 / 300 Balance -240 / -240 -60 / -60 Weight 50.8 kg Intake: Oral 760 / 760 240 / 240 Output: Urine 1000 / 1000 300 / 300 Other: Date of Last Bowel Movement 08/30/18 09/03/18 08/30/18 Results Labs on day of discharge: Labs from last 24 hours 09/03/18 09/03/18 09/03/18 05:04 05:04 05:04 WBC 21.0 H RBC 4.21 Hgb 9.4 L Hct 29.3 L MCV 69.7 L MCH 22.3 L MCHC 32.0 RDW 17.3 H Plt Count 245 MPV 10.5 Prelim Diff (Auto) Slide review pending Neut % (Auto) 79.2 H Lymph % (Auto) 6.9 L [place] % (Auto) 13.6 H Eos % (Auto) 0.0 Baso % (Auto) 0.3 Neut # (Auto) 16.6 H Lymph # (Auto) 1.5 [place] # (Auto) 2.8 H Eos # (Auto) 0.0 Baso # (Auto) 0.1 WBC Differential . Diff Scan Auto diff confirmed Differential Comment . Ovalocytes 1+ H Acanthocytes (Spur) Occ H PT 19.0 H INR 1.9 Sodium 141 Potassium 4.0 D Chloride 103 Carbon Dioxide 30.3 Anion Gap 8 BUN 29 H Creatinine 1.16 H Estimated GFR 44 L Random Glucose 105 Calcium 8.8 Phosphorus 3.3 Magnesium 1.9 Total Bilirubin 0.9 Direct Bilirubin 0.3 H Indirect Bilirubin 0.6 AST 13 L ALT 13 Alkaline Phosphatase 62 Total Protein 6.6 Albumin 2.5 L - Impressions ITS Impressions Chest X-Ray 08/29/18 12:40 CONCLUSION: Cardiomegaly without evidence of acute cardiopulmonary process. Abdomen X-Ray 08/30/18 00:00 CONCLUSION: 1. Nonobstructive bowel gas pattern. Discharge Plan - Discharge Disposition Patient Disposition: 01 Discharge Home - Discharge Condition Condition: Stable - Discharge Order Discharge Orders: Discharge Order (Routine); Ordered 09/03/18 Ordered By: Andrea Ruiz Cardiology Clear for Discharge (Routine); Ordered 09/01/18 Ordered By: Markell Guillen - Discharge Details Anticipated Discharge Date: 08/31/18 Discharge Comment: d/c after receive CD Cardizem and digoxin; and if HR remains stable - Physicians Team Primary Care Provider: Clair Oliver Attending Provider: Andrea Ruiz Other Providers: Michael Rodriguez ; Markell Guillen MD
[2018-09-03] MEDS ORDERED: Sod Phosphate/Sod Biphosphate (Adult) Enema 133 ML Bottle RECTAL ONE (15:00)
[2018-09-03 15:15] VITALS: BP 96/64; PULSE 89; RESP 16; TEMP 98.2; O2SAT 100
== END 2018-09-03 15:00 | disposition home or self-care (01) ==
LOC: NEPC 12:23 → NEDA 14:04 → HCIS 17:30
PROVIDERS: ADMIT Internal Medicine; ATTEND Internal Medicine
DX: I95.9 Hypotension, unspecified; R53.1 Weakness; Z88.6 Allergy status to analgesic agent; D50.9 Iron deficiency anemia, unspecified; N17.9 Acute kidney failure, unspecified; E78.5 Hyperlipidemia, unspecified; R60.0 Localized edema; M81.0 Age-related osteoporosis without current pathological fracture; M79.89 Other specified soft tissue disorders; I48.0 Paroxysmal atrial fibrillation; Z90.49 Acquired absence of other specified parts of digestive tract; R79.1 Abnormal coagulation profile; D72.829 Elevated white blood cell count, unspecified; Z87.891 Personal history of nicotine dependence; K43.9 Ventral hernia without obstruction or gangrene; E03.9 Hypothyroidism, unspecified; K59.09 Other constipation; Z79.01 Long term (current) use of anticoagulants; K58.9 Irritable bowel syndrome, unspecified; E87.6 Hypokalemia; I10 Essential (primary) hypertension